=== PATIENT | female | born 1930 | race Caucasian/White ===

== ENCOUNTER 2018-05-23 14:09 | Inpatient (IN) | payer MEDICARE ==
[2018-05-23 15:17] LABS: #Basophils 0.1 thou/uL (0.0-0.2); #Eosinphils 0.1 thou/uL (0.0-0.7); #Lymphocytes 1.8 thou/uL (1.20-3.40); #Monocytes 1.6 thou/uL (0.11-0.59); #Neutrophils 11.9 thou/uL (1.40-6.50); %Basophils 0.4 % (0.0-1.0); %Eosinophils 0.4 % (0.0-10.0); %Lymphocytes 11.6 % (21.0-51.0); %Monocytes 10.4 % (0.0-10.0); %Neutrophils 77.1 % (42.0-75.0); Hemoglobin 7.2 g/dL (12.0-16.0); Mean Corpuscular Hemoglobin 28.4 pg (27.0-31.0); Mean Platelet Volume 8.1 fL (7.4-10.4); Platelet Count 204 thou/uL (130-400); Red Blood Cell (RBC) Count 2.54 mill/uL (4.20-5.40); White Blood Cell (WBC) Count 15.5 thou/uL (4.8-10.8)
[2018-05-23] MEDS ORDERED: Pantoprazole 80 MG, Admixture Fee 1 EACH in Sodium Chloride 0.9% 100 ML IVP SCH (15:45)
[2018-05-23] MEDS ORDERED: Bisacodyl 5 MG TAB PO PRN (17:07)
[2018-05-23] MEDS ORDERED: Ondansetron ODT 4 MG TAB SL PRN (17:19)
[2018-05-23] MEDS ORDERED: Ondansetron HCl/PF 4 MG/2 ML Vial IVP PRN (17:19)
[2018-05-23] MEDS ORDERED: Sodium Chloride 0.9% 1,000 ML IV SCH (17:30)
--- NOTE | 2018-05-23 17:56 | HP ---
PRIMARY CARE PHYSICIAN: Shun Lamas MD CHIEF COMPLAINT: Melena. HISTORY OF PRESENT ILLNESS: Ms. Johnson is a pleasant 87-year-old lady, who was seen at [facility] on 05/23/2018 following transfer from [facility]. She lives alone. She reports that about 3 days ago, she developed mild abdominal discomfort. She de scribes it as a dull aching sensation over her mid abdomen. It is nonradiating. No known aggravatin g or relieving factors. She denies taking any pain medications, although Aleve is listed as one of h er home medications. She also reports nausea over the last 3 days. She reports vomiting once. She denies any coffee-grou nd emesis. She reports that over the last 3 days, she has had multiple melanotic stools. She denies any chest p ain. She denies any lightheadedness. She denies any fevers or chills. She reports generalized weak ness. She denies any chest pain. REVIEW OF SYSTEMS: All other systems reviewed and found to be negative. PAST MEDICAL HISTORY: Hypertension, gastroesophageal reflux disease, dyslipidemia, hypothyroidism, d econditioning, insomnia, peripheral vascular insufficiency, constipation, generalized weakness. PAST SURGICAL HISTORY: Suprapubic urethropexy and upper GI scope with esophageal dilatation. She is unable to tell me who did that procedure. PSYCHIATRIC HISTORY: Depression. SOCIAL HISTORY: The patient denies tobacco use, alcohol use, or recreational drug use. FAMILY HISTORY: No family history of coronary artery disease. CODE STATUS: I discussed her code status. She is DNR. ALLERGIES: ACETAMINOPHEN, AMLODIPINE, BENAZEPRIL, CELEXA, CITALOPRAM, CODEINE, FLUOXETINE, MIRALAX, NORVASC, OMEPRAZOLE, PHENOBARBITAL, POLYETHYLENE GLYCOL 3350, PRILOSEC, PROZAC, AND TYLENOL. CURRENT MEDICATIONS: Colace 50 mg daily, levothyroxine 50 mcg daily, Aleve 220 mg as needed, hydrala zine 50 mg 4 times a day, metoprolol succinate 25 mg daily. PHYSICAL EXAMINATION: GENERAL: Ms. Johnson is awake and alert, not in acute distress. VITAL SIGNS: Blood pressure is 149/79, pulse 93, respiratory rate 17, and oxygen saturation 99% on 2 liters of oxygen. She is afebrile. EYES: No scleral icterus. She has conjunctival pallor. ENT: Moist mucosal membranes. No oropharyngeal erythema or exudates. NECK: Supple, nontender. Trachea is midline. RESPIRATORY: Accessory muscles of breathing are not active. Chest wall movements are symmetric bila terally. LUNGS: Clear to auscultation without wheeze, rhonchi, or crepitations. CARDIOVASCULAR: S1 and S2 are heard, regular. Peripheral pulses palpable. No carotid bruit, no per icardial rub. ABDOMEN: Soft, mild tenderness around the umbilicus, but no guarding or rigidity. Bowel sounds hear d. No hepatomegaly, no splenomegaly. NEUROLOGIC: Cranial nerves II-XII intact. SKIN: No rashes or subcutaneous nodules. LYMPHATIC: No cervical lymphadenopathy. PSYCHIATRIC: Normal mood, normal affect. The patient is oriented to person, place, and time. LABORATORY DATA: Ms. Johnson's labs and investigations were reviewed. She has normocytic anemia with hemoglobin 7.2. Her hemoglobin was 12.8 in 08/2017. She has leukocytosis with 15,500 white cells, of which 77% are neutrophils. Platelet count is normal. She has normal sodium, normal potassium, el evated blood urea nitrogen of 55, creatinine mildly elevated at 1.13, last known creatinine 0.93 on 11/10/2016, unremarkable liver profile, INR 1.2, and urinalysis that is unremarkable. ASSESSMENT AND PLAN: Ms. Johnson is a pleasant 87-year-old lady, who was seen at [facility] on 05/23/2018. Her problem list includes: 1. Anemia of acute blood loss. Ms. Johnson is presenting with anemia of acute blood loss, likely sec ondary to upper gastrointestinal bleed. She will be admitted to the hospital. She will be treated w [facility] PPI drip. Gastroenterology Service is being consulted for opinion and help with management. She is also receiving 1 unit of packed RBCs as ordered by emergency room physician. 2. Hypothyroidism: Continue Synthroid once the patient is able to take oral medications. 3. Hypertension: Monitor vital signs. Titrate antihypertensives as needed. We will also start the patient on IV hydralazine p.r.n. Many thanks for allowing me to participate in your patient's care. Please feel free to contact me wi th any questions or concerns. LEVEL OF RISK: Moderate. LEVEL OF COMPLEXITY: Moderate.
[2018-05-23] MEDS: Sodium Chloride 0.9% 1,000 ML IV SCH (22:20)
[2018-05-23] MEDS: Pantoprazole 80 MG in Sodium Chloride 0.9% 100 ML IVP SCH (23:08)
[2018-05-24 01:45] LABS: #Eosinphils 0.1 thou/uL (0.0-0.7); #Lymphocytes 1.6 thou/uL (1.20-3.40); #Monocytes 1.4 thou/uL (0.11-0.59); #Neutrophils 7.4 thou/uL (1.40-6.50); %Basophils 0.4 % (0.0-1.0); %Eosinophils 0.5 % (0.0-10.0); %Lymphocytes 15.1 % (21.0-51.0); %Monocytes 13.2 % (0.0-10.0); %Neutrophils 70.7 % (42.0-75.0); Hemoglobin 7.2 g/dL (12.0-16.0); Mean Corpuscular HGB CONC 34.1 g/dL (32.0-36.0); Mean Corpuscular Hemoglobin 30.1 pg (27.0-31.0); Mean Corpuscular Volume 88.3 fL (78.0-98.0); Mean Platelet Volume 7.5 fL (7.4-10.4); Platelet Count 194 thou/uL (130-400); RBC Distribution Width 13.2 % (11.5-14.5); Red Blood Cell (RBC) Count 2.38 mill/uL (4.20-5.40); White Blood Cell (WBC) Count 10.4 thou/uL (4.8-10.8)
[2018-05-24 02:15] LABS: Anion Gap 13 mmol/L (10-20); BUN (Urea Nitrogen) 48 mg/dL (9.8-20.1); Calc. Creatinine Clearance 32 mL/min (70-130); Calcium 8.1 mg/dL (7.8-10.44); Carbon Dioxide 18 mmol/L (23-31); Chloride 114 mmol/L (98-107); Estimated GFR-MDRD 62; Glucose 104 mg/dL (83-110); Potassium 3.9 mmol/L (3.5-5.1); Sodium 141 mmol/L (136-145)
[2018-05-24] MEDS ORDERED: GoLYTELY 4,000 ml Bottle PO SCH (05:00)
--- NOTE | 2018-05-24 11:22 | CON ---
DATE OF CONSULTATION: 05/23/2018 REFERRING PHYSICIAN: Dr. Fernando Mcguire, [facility]. REASON FOR CONSULTATION: GI bleeding, anemia due to blood loss. HISTORY OF PRESENT ILLNESS: Ms. Soni Johnson is a very pleasant 87-year-old fragile looking Cauca krystal female who was seen at our office, she was in the floor in the evening because of history of GI bleeding and anemia. The patient does see Dr. Lamas on a regular basis. The patient and patient's daughter tells me that she is having bright-red blood per stool, not actually dark tarry stool. In f act, the floor nurse tells me she had a stool in the floor after she arrived here and stool is actual ly bright red blood. She also had a stool out of the room and the stool is actually bright red in th e diaper, some melena. The patient noticed her GI bleeding approximately 3 days ago. The bleeding w as persistent. She has abdominal pain which is across the lower abdomen. She has nausea with one ep isode of vomiting. She vomited a couple of days ago and vomiting did not have any blood or coffee-gr ound material. The patient has no previous episodes of ulcer disease. The patient had no similar sy mptoms in the past. The patient was seen by Dr. Lamas this morning in the office and was sent to [facility]. She was found to be anemic and was transferred here. Her CBC showed anemia with a hemoglobin of 7.7. Her previous CBC report is unavailable. The patient appears very comfortable. She has no nausea or vomiting today. She does complain of pain across the lower abdomen. She has no fever, no chills. No similar episodes in the past. She has had an EGD and dilation for stricturing in the past. She is unable to tell me where it was done. She also had a colonoscopy more than 10 y ears ago and again she is on . Her blood pressure is very stable and BP when I saw her in the f caterina was 158/76. She is not tachycardic either. has been ordered in the ER, but not determina te so far. She has no relevant history. ALLERGIES: Multiple include ACETAMINOPHEN, AMLODIPINE, BENAZEPRIL, CELEXA, CITALOPRAM, CODEINE. All ergic to FLUOXETINE, NORVASC, OMEPRAZOLE, PHENOBARBITAL, POLYETHYLENE GLYCOL, PRILOSEC, PROZAC, AND T YLENOL. She is unable to tell me what happened when she took MIRALAX OR POLYETHYLENE GLYCOL. MEDICATIONS: Include Colace, levothyroxine, Aleve, hydralazine, metoprolol succinate. MEDICAL ILLNESSES: 1. Hypertension. 2. Chronic acid reflux. 3. Hyperlipidemia. 4. Hypothyroidism. 5. Deconditioning. 6. Insomnia. 7. Peripheral vascular disease. 8. Constipation. 9. Generalized weakness. SURGERIES: 1. Suprapubic urethropexy. 2. Esophageal dilation in the past. PSYCHIATRIC HISTORY: History of depression. SOCIAL HISTORY: The patient does not smoke or drink alcohol. FAMILY HISTORY: No family history of coronary artery disease, cancer, or CVA. REVIEW OF SYSTEMS: Constitutional: History of fatigue, tiredness, and generalized weakness. She suh s no history of chronic headache, dizziness. Respiratory system: No history of chronic cough, hemop tysis, or dyspnea. Cardiovascular system: No chest pain, no palpitation, no dyspnea, orthopnea or P ND. Gastrointestinal: As in history of present illness. Genitourinary: No dysuria or hematuria. Musculoskeletal: History of some back pain, arthralgias. PHYSICAL EXAMINATION: GENERAL: Revealed a very fragile looking, elderly female, appears very comfortable. She i s awake, alert and communicative. She is in no distress. VITAL SIGNS: Pulse is around 88, blood pressure 158/76. HEENT: Conjunctivae clear. NECK: Supple. No adenitis or thyromegaly noted. CARDIOVASCULAR SYSTEM: First and second heart sounds normal. LUNGS: Clear to auscultation. ABDOMEN: Abdomen is soft. Abdomen is nondistended. Abdomen is tender actually over the right lower quadrant, right lumbar area and also suprapubic area. There is some fullness. There is no rebound or guarding. No organomegaly or masses. Bowel sounds normal. Rectal exam done showed stool in the rectal vault and she has more of bright red blood on the exam finger. She also had the same thing on the diaper. Symptoms are grossly within normal limits. LABORATORY AND X-RAY FINDINGS: CBC: WBC , 77% neutrophils, hemoglobin 7.2. Electrolytes are n ormal. Her BUN elevated at 55 and most suggestive of upper GI bleeding but her stool is actually jorge luis ght red at the present time. Liver function tests are normal. CLINICAL IMPRESSION: 1. This is an 87-year-old female with GI bleeding and the history is somewhat confusing. but she and her daughter tells me that she is passing blood per rectum. She is also tender ove r the lower abdomen. Her elevated BUN is suggestive of upper gastrointestinal bleeding. I do not suh ve her baseline BUN from before. As per the admitting history and physical by Dr. Mcguire, apparently her creatinine was normal at 0.93 in 08/2017. 2. Hypothyroidism. 3. Anemia due to blood loss. 4. Hypertension. 5. Hyperlipidemia. 6. Chronic acid reflux. RECOMMENDATIONS: 1. Clear liquid diet. 2. Transfuse 1 unit of packed RBCs tonight and serial H&H. If blood count fails to come above 9, we would recommend another unit of packed RBCs. I did talk to the patient and patient's family about E GD and colonoscopy and they agree. Plan for surgery tomorrow after bowel prep heat transfer technician tomorrow .
[2018-05-24] MEDS: Sodium Chloride 0.9% 1,000 ML IV SCH ×2 (12:11→23:04)
[2018-05-24] MEDS ORDERED: PHENYLEPHRINE-NS 100 MCG/ML 10 ML SYRINGE ONE ×2 (13:37→19:03)
[2018-05-24] MEDS ORDERED: PROPOFOL 200 MG/20 ML VIAL ONE (13:37)
[2018-05-24] MEDS ORDERED: Lidocaine 1% PF 5 ML VIAL ONE (13:37)
[2018-05-24] MEDS ORDERED: Glycopyrrolate 0.2 MG/ML 5 ML SYRINGE ONE (13:37)
[2018-05-24] MEDS: Diltiazem 125 MG in Sodium Chloride 0.9% 100 ML IVPB SCH (14:20)
--- NOTE | 2018-05-24 16:40 | PDOC.PN ---
- Subjective Encounter Start Date: 05/24/18 Encounter Start Time: 14:10 Subjective: f/u for GI bleed and acute blood loss anemia s/p 1u PRBC's. Hgb -: in 7 range previously 12 in 2017. Currently prepping for endoscopy -: with Ivan. Nsg reports A-fib RVR this pm. - Objective Resuscitation Status: Resuscitation Status DNR:Do Not Resuscitate MAR Reviewed: Yes Vital Signs & Weight: Vital Signs (12 hours) Pulse 05/24/18 14:15 95 Weight Weight 100 lb 9.6 oz I&O: 05/23/18 05/24/18 05/25/18 06:59 06:59 06:59 Intake Total 1190 Output Total 200 Balance 990 Result Diagrams: 05/24/18 01:31 05/24/18 01:31 Additional Labs: Microbiology 05/23/18 12:08 Stool - Pending Stool Occult Blood (MENDY) - Final Laboratory Tests 09/09/17 05/23/18 05/23/18 07:36 12:20 15:08 WBC 15.5 H Hgb 12.8 7.7 L 7.2 L EKG Reviewed by me: Yes (Tele - A-fib in 150's now in low 100's on Cardizem gtt) Phys Exam - Physical Examination pale, awake, nods to questions HEENT: PERRLA, sclera anicteric, oral pharynx no lesions Neck: no nodes, no JVD, supple, full ROM Respiratory: no wheezing, no rales, no rhonchi, clear to auscultation bilateral tachycardic S1, S2 Cardiovascular: no significant murmur, no rub, irregular Gastrointestinal: soft, non-tender, no distention, positive bowel sounds Musculoskeletal: no edema, pulses present Neurological: normal sensation, moves all 4 limbs Psychiatric: A&O x 3 Deviation from normal: generally pale with pale nail beds Skin: normal turgor Dx/Plan (1) Acute GI bleeding Code(s): K92.2 - GASTROINTESTINAL HEMORRHAGE, UNSPECIFIED Status: Acute Comment: Likely upper source, serial H/H, Endoscopy planned today, IV PPI (2) Acute blood loss anemia Code(s): D62 - ACUTE POSTHEMORRHAGIC ANEMIA Status: Acute Comment: s/p 1u PRBC's, serial H/H, repeat CBC in am, see #1 above (3) Atrial fibrillation with RVR Code(s): I48.91 - UNSPECIFIED ATRIAL FIBRILLATION Status: Acute Comment: Apparent new-onset, Cardizem 10mg IV bolus then 5mg/h, check 2D echo in am, check TSH/FT4, no anticoagulation due to active GI bleeding (4) HTN (hypertension) Code(s): I10 - ESSENTIAL (PRIMARY) HYPERTENSION Status: Chronic Qualifiers: Hypertension type: essential hypertension Qualified Code(s): I10 - Essential (primary) hypertension Comment: Resume home BP regimen, serial monitoring (5) Physical deconditioning Code(s): R53.81 - OTHER MALAISE Status: Chronic Comment: PT evaluation for functional assessment (6) Hypothyroidism Code(s): E03.9 - HYPOTHYROIDISM, UNSPECIFIED Status: Chronic Comment: Continue Levothyroxine, check TSH/FT4 level in am - Plan plan discussed w/ family, PT/OT, social work supervisor, out of bed/ambulate, DVT proph w/SCDs Stable overall -: Continue Cardizem gtt for rate-control strategy -: No anticoagulation due to active GI bleeding -: Continue IV PPI -: 2D echo in am * Endoscopy planned for today * AM lab: BMP, CBC, TSH/FT4
[2018-05-24] MEDS ORDERED: Ketamine 50 MG/ML VIAL ONE (19:03)
[2018-05-24] MEDS ORDERED: Fentanyl 100 MCG/2 ML VIAL ONE (19:03)
[2018-05-24] MEDS ORDERED: Ondansetron HCl/PF 4 MG/2 ML Vial IVP PRN (20:36)
[2018-05-24] MEDS ORDERED: Promethazine HCl 25 MG/ML VIAL IM PRN (20:36)
[2018-05-24] MEDS ORDERED: Promethazine HCl 25 MG/ML VIAL SLOW IVP PRN (20:36)
[2018-05-24 21:19] LABS: Hemoglobin 7.9 g/dL (12.0-16.0)
[2018-05-25] MEDS: Pantoprazole 80 MG in Sodium Chloride 0.9% 100 ML IVP SCH ×2 (03:08→16:07)
--- NOTE | 2018-05-25 03:23 | OP ---
DATE OF PROCEDURE: 05/24/2018 OPERATIVE PROCEDURE: Esophagogastroduodenoscopy with biopsy. PREOPERATIVE DIAGNOSIS: An 87-year-old female with gastrointestinal bleeding and anemia. The patient undergoing esophagogastroduodenoscopy. POSTOPERATIVE DIAGNOSES: 1. Normal esophageal mucosa. 2. Small hiatus hernia. 3. Gastric ulcer x3 over the gastric antrum and one over the pyloric channel. The ulcer base is ho an and does not have any stigmata of recent bleeding. 4. Normal duodenum. PROCEDURE NOTE: The patient was placed on her left lateral position and was given sedation by Anesth esia Department. A Pentax video gastroscope under direct vision was passed down the oropharynx, past the GE junction, into the stomach and subsequently into the descending duodenum. The esophageal muc trang appeared normal. The GE junction, the mucosa appeared normal. Retroflexion showed a small hiatu s hernia. Over the gastric body, no pathology seen. The gastric antrum showed 3 ulcerations and tessy ears with clear base. There is ulcer over the pyloric channel. No active bleeding seen. The duoden al bulb, descending duodenum, no pathology seen. Biopsies obtained of the gastric antrum and gastric body. The stomach was decompressed and the scope removed.
[2018-05-25 06:19] LABS: Hemoglobin 7.7 g/dL (12.0-16.0)
[2018-05-25 06:29] LABS: Band 61 % (5-11); Hemoglobin 7.6 g/dL (12.0-16.0); Lymphocytes 16 % (21-51); MDiff Complete? YES; Mean Corpuscular HGB CONC 34.5 g/dL (32.0-36.0); Mean Corpuscular Hemoglobin 31.7 pg (27.0-31.0); Mean Corpuscular Volume 92.1 fL (78.0-98.0); Mean Platelet Volume 7.5 fL (7.4-10.4); Metamyelocyte 1 % (0-0); Monocytes 6 % (0-10); Neutrophil 16 % (42-75); PLT Morphology Comment Appears Adequate; Platelet Count 238 thou/uL (130-400); RBC Distribution Width 14.3 % (11.5-14.5); Red Blood Cell (RBC) Count 2.39 mill/uL (4.20-5.40); Reflex for Review?? YES; White Blood Cell (WBC) Count 10.6 thou/uL (4.8-10.8)
[2018-05-25 06:43] LABS: Anion Gap 14 mmol/L (10-20); BUN (Urea Nitrogen) 28 mg/dL (9.8-20.1); Calc. Creatinine Clearance 37 mL/min (70-130); Calcium 7.9 mg/dL (7.8-10.44); Carbon Dioxide 16 mmol/L (23-31); Chloride 116 mmol/L (98-107); Estimated GFR-MDRD 67; Glucose 112 mg/dL (83-110); Potassium 3.5 mmol/L (3.5-5.1); Sodium 142 mmol/L (136-145)
[2018-05-25 07:01] LABS: Free T4 (Free Thyroxine) 0.94 ng/dL (0.70-1.48); Thyroid Stimulating Hormone 0.9106 uIU/mL (0.35-4.94)
[2018-05-25] MEDS: Diltiazem 125 MG in Sodium Chloride 0.9% 100 ML IVPB SCH (11:12)
[2018-05-25] MEDS: Sodium Chloride 0.9% 1,000 ML IV SCH (13:30)
[2018-05-25] MEDS ORDERED: Sodium Chloride 0.9% 1,000 ML IV SCH (16:33)
--- NOTE | 2018-05-25 16:36 | PDOC.PN ---
- Subjective Encounter Start Date: 05/25/18 Encounter Start Time: 16:10 Subjective: f/u for GI bleeding and acute blood loss anemia due to gastric ulcers. -: PPI and s/p 1u PRBC's. Still feels weak but no fever, SOB. A-fib noted -: with Cardizem gtt. - Objective Resuscitation Status: Resuscitation Status DNR:Do Not Resuscitate MAR Reviewed: Yes Vital Signs & Weight: Vital Signs (12 hours) Temp Pulse Pulse Pulse Pulse Resp BP 05/25/18 09:38 86 108 H 83 137/65 05/25/18 08:00 97.6 F 88 16 05/25/18 07:47 97.6 F 88 18 BP BP BP Pulse Ox 05/25/18 09:38 136/72 144/73 H 05/25/18 08:00 93 L 05/25/18 07:47 121/59 L 94 L Weight Admit Weight 99 lb 8 oz Weight 104 lb 11.2 oz I&O: 05/24/18 05/25/18 05/26/18 06:59 06:59 06:59 Intake Total 1190 810 Output Total 200 Balance 990 810 Result Diagrams: 05/25/18 05:49 05/25/18 05:48 Additional Labs: Microbiology 05/23/18 12:08 Stool - Pending Stool Occult Blood (MENDY) - Final Laboratory Tests 09/09/17 05/23/18 05/23/18 07:36 12:20 15:08 WBC 15.5 H Hgb 12.8 7.7 L 7.2 L Free T4 TSH 3rd Generation 05/24/18 05/25/18 05/25/18 21:11 05:48 05:49 WBC Hgb 7.9 L 7.7 L Free T4 0.94 TSH 3rd Generation 0.9106 Radiology Reviewed by me: Yes (EGD - 3 gastric ulcers over pyloric channel) EKG Reviewed by me: Yes (Tele - A-fib in 110's) Phys Exam - Physical Examination Constitutional: NAD HEENT: PERRLA, sclera anicteric, oral pharynx no lesions Neck: no nodes, no JVD, supple, full ROM few scattered rhonchi Respiratory: no wheezing, no rales, clear to auscultation bilateral tachycardic S1, S2 Cardiovascular: no significant murmur, no rub, gallop, irregular Gastrointestinal: soft, non-tender, no distention, positive bowel sounds Musculoskeletal: no edema, pulses present Neurological: normal sensation, moves all 4 limbs Psychiatric: normal affect, A&O x 3 Deviation from normal: pale appearing Skin: normal turgor, cap refill <2 seconds Dx/Plan (1) Acute GI bleeding Code(s): K92.2 - GASTROINTESTINAL HEMORRHAGE, UNSPECIFIED Status: Acute Comment: Secondary to gastric ulcers, PPI, avoid anticoagulation, appreciate GI assistance (2) Acute blood loss anemia Code(s): D62 - ACUTE POSTHEMORRHAGIC ANEMIA Status: Acute Comment: s/p 1u PRBC's, serial H/H, transfuse 2nd unit PRBC's today, CBC in am (3) Atrial fibrillation with RVR Code(s): I48.91 - UNSPECIFIED ATRIAL FIBRILLATION Status: Acute Comment: Apparent new-onset, Cardizem 10mg IV bolus then 5mg/h, check 2D echo in am, no anticoagulation due to active GI bleeding, resume Metoprolol 25mg daily, consult Cardiology service, Echo pending (4) HTN (hypertension) Code(s): I10 - ESSENTIAL (PRIMARY) HYPERTENSION Status: Chronic Qualifiers: Hypertension type: essential hypertension Qualified Code(s): I10 - Essential (primary) hypertension Comment: Resume home BP regimen, serial monitoring (5) Physical deconditioning Code(s): R53.81 - OTHER MALAISE Status: Chronic Comment: PT evaluation for functional assessment (6) Hypothyroidism Code(s): E03.9 - HYPOTHYROIDISM, UNSPECIFIED Status: Chronic Comment: Continue Levothyroxine - Plan plan discussed w/ family, PT/OT, social professionals, DVT proph w/SCDs Stable currently -: Transfuse 2nd unit PRBC's today -: No anticoagulation -: Continue Protonix IV -: Continue Cardizem gtt * Consult Cardiology service * AM lab: BMP, CBC
[2018-05-25] MEDS ORDERED: Digoxin 0.25 MG TAB PO SCH (17:00)
[2018-05-25] MEDS ORDERED: Acetaminophen 500 MG TAB PO PRN (19:19)
--- NOTE | 2018-05-26 02:32 | OP ---
DATE OF PROCEDURE: 05/24/2018 OPERATIVE PROCEDURE: Colonoscopy. PREOPERATIVE DIAGNOSIS: Gastrointestinal bleeding, negative esophagogastroduodenoscopy. POSTOPERATIVE DIAGNOSES: The exam was very difficult because of large amount of old blood and some c lots. There is no fecal material seen, but the exam was very difficult because of the large amount o f blood and clot. No fresh blood seen at the time of endoscopy. She does have scattered diverticula r disease and possibly what appears to be ulceration of the right colon. The blood was seen starting from the rectum all the way to the right colon. Based on the endoscopic findings, possible the gwendolyn ent has most likely bleeding from diverticular disease versus bleeding from possible small bowel path ology. PROCEDURE IN DETAIL: The patient was placed in the left lateral position. A rectal exam was done be fore the scope was advanced into the rectum. The patient has had external hemorrhoids. No other les ions felt. A Pentax video colonoscope was introduced into the rectum and advanced all the way into t he right colon. The patient had a very tortuous and redundant colon. On top of fact that she has la rge amount of dark blood all through the colon. There is no fresh bleeding seen. The patient does h ave scattered diverticular disease of the left colon and possibly the proximal colon. Because of the large amount of dark blood, it was very difficult to actually visualize. There appears to be also s ome mucosal inflammation, some ulceration of right colon. Retroflexion of the scope in the rectum sh owed hemorrhoids. RECOMMENDATIONS: As follows: 1. Discontinue n.p.o. 2. Serial H&H. 3. Clear liquid diet. 4. If the bleeding recurs and if she continues to have bleeding please obtain a scan.
--- NOTE | 2018-05-26 02:51 | PRG ---
DATE OF SERVICE: 05/25/2018 SUBJECTIVE: Ms. Soni Johnson is an 87-year-old female, hospitalized with gastrointestin al bleeding. The patient has been given 2 units of packed RBCs since admission. The patient underwe nt EGD and was found to have gastric ulcer, nonbleeding and also a pyloric channel ulcer. The colono scopy showed dark blood throughout the colon starting from the rectum all the way to cecum. She also has scattered diverticulosis. There is some in the right colon. Although water was irrigated and washed out, the entire colon could not be completely cleaned out. There was no fresh blood seen during the examination. It was felt that patient most likely has bleeding from either diverticular disease or possible small bowel pathology. The patient has done well overnight. She has had no stoo l. Her blood count remained stable around 7.6 it has not dropped down anymore. The patient has had no stool today. She has no abdominal pain, no nausea or vomiting. LABORATORY DATA: From today, WBC 10,600, hemoglobin 7.6, hematocrit 22, MCV 92.1, platelet count is 238,000. Chem-7: Potassium 3.5, chloride 116, bicarbonate 16, BUN 28 , creatinine 0.81, glucos e 112. CLINICAL IMPRESSION: 1. Gastrointestinal bleeding, most likely diverticular bleeding as seen no fresh blood in the colon, but large amount of dark blood seen in the colonoscopy. 2. Gastric ulcer, nonbleeding. 3. Anemia due to blood loss. RECOMMENDATIONS: 1. Heart healthy diet today. 2. Repeat CBC tomorrow. Blood count remained stable and she has recurrence of bleeding, hopefully p atient can be discharged home in the next 24 hours.
[2018-05-26 06:04] LABS: Band 30 % (5-11); Eosinophils 3 % (0-10); Hemoglobin 10.1 g/dL (12.0-16.0); Lymphocytes 23 % (21-51); MDiff Complete? YES; Mean Corpuscular HGB CONC 34.1 g/dL (32.0-36.0); Mean Corpuscular Hemoglobin 31.2 pg (27.0-31.0); Mean Corpuscular Volume 91.6 fL (78.0-98.0); Mean Platelet Volume 7.6 fL (7.4-10.4); Metamyelocyte 1 % (0-0); Monocytes 9 % (0-10); Myelocyte 1 % (0-0); Neutrophil 29 % (42-75); Platelet Count 265 thou/uL (130-400); RBC Distribution Width 14.4 % (11.5-14.5); Reactive Lymphocytes 4 % (0-10); Red Blood Cell (RBC) Count 3.22 mill/uL (4.20-5.40); White Blood Cell (WBC) Count 12.1 thou/uL (4.8-10.8)
[2018-05-26] MEDS: hydrALAZINE 20 MG/ML VIAL SLOW IVP PRN ×2 (06:08→20:31)
[2018-05-26 06:16] LABS: Anion Gap 12 mmol/L (10-20); BUN (Urea Nitrogen) 22 mg/dL (9.8-20.1); Calc. Creatinine Clearance 40 mL/min (70-130); Calcium 8.4 mg/dL (7.8-10.44); Carbon Dioxide 18 mmol/L (23-31); Chloride 116 mmol/L (98-107); Estimated GFR-MDRD 73; Glucose 81 mg/dL (83-110); Potassium 3.3 mmol/L (3.5-5.1); Sodium 143 mmol/L (136-145)
[2018-05-26] MEDS ORDERED: Furosemide 40 MG/4 ML VIAL ONE (06:28)
[2018-05-26] MEDS ORDERED: Nitroglycerin 2% Ointment 1 INCH/1 GM Packet ONE (06:29)
[2018-05-26] MEDS ORDERED: Furosemide 40 MG/4 ML VIAL SLOW IVP SCH ×2 (06:45→07:00)
[2018-05-26] MEDS ORDERED: Nitroglycerin 2% Ointment 1 INCH/1 GM Packet TOP SCH ×2 (07:00)
--- NOTE | 2018-05-26 08:04 | RAD ---
UPRIGHT PORTABLE CHEST 1 VIEW: HISTORY: An 87-year-old female with a history of shortness of breath and crackles. FINDINGS: Monitor leads overlie the chest. Increased linear and interstitial markings bilaterally, which may w ell represent some chronic interstitial lung disease versus some symmetric acute interstitial edema, mild. No confluent pneumonia. Slight blunting of the costophrenic angles. IMPRESSION: Increased interstitial parenchymal changes bilaterally, particularly in the perihilar regions. Evide nce for some diffuse acute interstitial disease such as atypical pneumonitis or edema versus underlyi ng chronic change. Short-term followup to include upright PA and lateral chest. Atherosclerosis of the aorta with ectasia. POS: OFF
[2018-05-26] MEDS: Pantoprazole 80 MG in Sodium Chloride 0.9% 100 ML IVP SCH (08:36)
[2018-05-26] MEDS ORDERED: Digoxin 0.125 MG TAB PO SCH (09:00)
--- NOTE | 2018-05-26 15:50 | PDOC.PN ---
- Subjective Encounter Start Date: 05/26/18 Encounter Start Time: 15:05 Subjective: f/u s/p GI bleed and 2u PRBC's. Also A-fib RVR on prior Cardizem -: gtt but converting to SR. Feels much better today. - Objective Resuscitation Status: Resuscitation Status DNR:Do Not Resuscitate MAR Reviewed: Yes Vital Signs & Weight: Vital Signs (12 hours) Temp Pulse Pulse Pulse Resp BP BP 05/26/18 11:28 97.9 F 86 15 05/26/18 11:24 80 78 191/86 H 05/26/18 08:35 89 05/26/18 08:09 97.5 F L 89 12 05/26/18 06:35 125 H 28 H 05/26/18 06:08 113 H 189/109 H 05/26/18 04:00 98.2 F 71 20 BP BP Pulse Ox 05/26/18 11:28 169/55 H 97 05/26/18 11:24 188/85 H 05/26/18 08:35 05/26/18 08:09 171/75 H 96 05/26/18 06:35 95 05/26/18 06:08 05/26/18 04:00 144/67 H 92 L Weight Admit Weight 99 lb 8 oz Weight 104 lb 11.2 oz I&O: 05/25/18 05/26/18 05/27/18 06:59 06:59 06:59 Intake Total 810 1515 Balance 810 1515 Result Diagrams: 05/26/18 05:26 05/26/18 05:26 Additional Labs: Microbiology 05/23/18 12:08 Stool - Pending Stool Occult Blood (MENDY) - Final Laboratory Tests 09/09/17 05/23/18 05/23/18 07:36 12:20 15:08 WBC 15.5 H Hgb 12.8 7.7 L 7.2 L Band Neuts % (Manual) Free T4 TSH 3rd Generation 05/24/18 05/25/18 05/25/18 21:11 05:48 05:49 WBC Hgb 7.9 L 7.7 L Band Neuts % (Manual) Free T4 0.94 TSH 3rd Generation 0.9106 05/25/18 05/26/18 05:49 05:26 WBC 10.6 Hgb 7.6 L Band Neuts % (Manual) 61 H 30 H Free T4 TSH 3rd Generation Radiology Reviewed by me: Yes (Echo - EF 60-65%, mod-severe LAE) EKG Reviewed by me: Yes (Tele - SR) Phys Exam - Physical Examination Constitutional: NAD HEENT: PERRLA, sclera anicteric, oral pharynx no lesions Neck: no nodes, no JVD, supple, full ROM few basilar crackles Respiratory: no wheezing, no rhonchi S1, S2 Cardiovascular: RRR, no significant murmur, no rub, gallop Gastrointestinal: soft, non-tender, no distention, positive bowel sounds Musculoskeletal: no edema, pulses present Neurological: normal sensation, moves all 4 limbs Psychiatric: normal affect, A&O x 3 Skin: no rash, normal turgor, cap refill <2 seconds Dx/Plan (1) Acute GI bleeding Code(s): K92.2 - GASTROINTESTINAL HEMORRHAGE, UNSPECIFIED Status: Acute Comment: Secondary to gastric ulcers, PPI, avoid anticoagulation, appreciate GI assistance (2) Acute blood loss anemia Code(s): D62 - ACUTE POSTHEMORRHAGIC ANEMIA Status: Acute Comment: s/p 2u PRBC's, serial H/H, stable currently (3) Atrial fibrillation with RVR Code(s): I48.91 - UNSPECIFIED ATRIAL FIBRILLATION Status: Acute Comment: Apparent new-onset, Cardizem 10mg IV bolus then 5mg/h, check 2D echo in am, no anticoagulation due to active GI bleeding, converted to SR, continue Metoprolol 50mg daily, Digoxin 0.125mg, appreciate Cardiology assistance (4) HTN (hypertension) Code(s): I10 - ESSENTIAL (PRIMARY) HYPERTENSION Status: Chronic Qualifiers: Hypertension type: essential hypertension Qualified Code(s): I10 - Essential (primary) hypertension Comment: Resume home BP regimen, serial monitoring (5) Physical deconditioning Code(s): R53.81 - OTHER MALAISE Status: Chronic Comment: PT evaluation for functional assessment (6) Hypothyroidism Code(s): E03.9 - HYPOTHYROIDISM, UNSPECIFIED Status: Chronic Comment: Continue Levothyroxine - Plan plan discussed w/ family, PT/OT, social media editor, out of bed/ambulate, DVT proph w/SCDs Stable currently -: Titrate rate-control agents -: No anticoagulation due to GI bleeding -: Convert Protonix 40mg po BID -: Saline lock IVF * AM lab: BMP, H/H * Likely home in am
--- NOTE | 2018-05-26 16:34 | CON ---
DATE OF CONSULTATION: 05/26/2018 CARDIOLOGY CONSULTATION REASON FOR CONSULTATION: Atrial fibrillation, rapid ventricular response. HISTORY OF PRESENT ILLNESS: Mrs. Johnson is a very pleasant 87-year-old white female who comes to the hospital for 3 days of abdominal pain and melena. She was found to have an acute blood loss anemia, underwent EGD and colonoscopy with Dr. Caban yesterday and was found to have 3 nonbleeding ulcer s in her stomach. Cardiology is being consulted as she went into atrial fibrillation and RVR. She w as started on diltiazem drip for rate control. Blood pressure could be hold well with this. On my e valuation, Mrs. Johnson just happened to go back into normal rhythm. This is actually a new diagnosis for her. She had never had any heart problems in the past. Never seen a dinkey brakeman before. PAST MEDICAL HISTORY: Includes, 1. Hypertension. 2. GERD. 3. Hyperlipidemia. 4. Hypothyroidism. 5. Deconditioning. 6. Insomnia. 7. Peripheral vascular disease. 8. Constipation. 9. Generalized weakness. PAST SURGICAL HISTORY: 1. Suprapubic urethropexy. 2. Upper gastrointestinal scoping and esophageal dilatations in the past. SOCIAL HISTORY: No alcohol, tobacco or drugs. FAMILY HISTORY: Noncontributory. HOME MEDICATIONS: Include, 1. Metoprolol succinate 25 mg a day. 2. Hydralazine 50 mg 4 times a day. 3. Docusate 50 mg a day. ALLERGIES: 1. IODINE. 2. AMLODIPINE. 3. BENAZEPRIL. 4. CITALOPRAM. 5. CODEINE. 6. FISH CONTAINING PRODUCTS. 7. PROZAC. 8. PRILOSEC. 9. PHENOBARBITAL. 10. MIRALAX. 11. SHELLFISH DERIVED gives her an anaphylaxis. REVIEW OF SYSTEMS: A 12-point review of systems was done and is all negative unless stated in the hi story of present illness. PHYSICAL EXAMINATION: VITAL SIGNS: Temperature 97.9, pulse 86, respiration rate 15, satting 97% on 2 liters, blood pressur e 169/55. GENERAL: Awake, alert, oriented x3, in no distress. HEENT: Normocephalic. NECK: Supple. LUNGS: Very soft crackles at bilateral bases, better with cough. CARDIOVASCULAR: S1, S2. No S3, S4. No murmurs, no rubs. ABDOMEN: Soft. Positive bowel sounds. EXTREMITIES: No edema. SKIN: Warm and dry. LABORATORY WORK: Reviewed. White count of 12, hemoglobin of 10.1, hematocrit of 29, platelet count of 265,000. Chemistries were unremarkable except for potassium of 3.3, anion gap of 12, BUN 22, crea tinine 0.7. Normal free T4 and TSH. IMAGING: EKG was reviewed. She was in AFib RVR before. Currently in sinus rhythm. Echocardiogram was reviewed. This was read yesterday by one of my partners, Dr. Valencia, had an EF of 60%-65%. Dilated left atrium, mild MR, [id number]-[id number] TR with elevated pulmonary pressures. ASSESSMENT: 1. New onset atrial fibrillation, paroxysmal. 2. Upper gastrointestinal bleed. 3. Acute blood loss anemia. 4. Hypertension. PLAN: 1. Continue metoprolol alone. She is currently not a good candidate for any type of stroke prophyla xis until her exact source of bleeding is found. It is assumed to be one of these 3 ulcers, however, they did not have any of the stigmata of recent bleeding. I would think she is not a good candidate for full anticoagulation given this GI bleeding as she would be high risk for bleeding and if possib le in the future, she will need to be on aspirin alone for stroke prophylaxis along with a proton pum p inhibitor to prevent any further ulcers from forming. 2. Otherwise, continue her current dose of metoprolol. We may be able up titrate as long as her hea rt rate allows. We will go up to 100 mg of Toprol XL daily. Otherwise, her blood pressure is high a t this time. Hopefully, up titrating her metoprolol will help. I doubt that it will get her down to the level that it needs to be. I would only treat her standing blood pressure. I would not treat h er sitting or her lying down blood pressure. Thank you letting us participate in the care of your patient. We will follow.
--- NOTE | 2018-05-27 03:25 | PRG ---
DATE OF SERVICE: 05/26/2018 SUBJECTIVE: This is an 87-year-old female hospitalized with hematochezia, anemia due to bl ood loss. EGD which revealed multiple gastric ulcers, nonbleeding. The colonoscopy showed scattered diverticular disease, but at the time of colonoscopy, no active bleeding seen. She had large amount of dark blood in the colon. The patient has done very well without any recurrence of bleeding. She yesterday and she states she actually feeling better. Blood count is up to 10.1. She denies any abdominal pain, no nausea. No rectal bleeding. She also has atrial fibrillation with fast ventr icular rate is controlled with Cardizem. Her pulse rate is down to around 76. PHYSICAL EXAMINATION: GENERAL: Appears comfortable. VITAL SIGNS: Stable. Pulse is around 76, blood pressure around 130/70. CARDIOVASCULAR SYSTEM AND LUNGS: Within normal limits. ABDOMEN: Soft to palpate. No organomegaly. No tenderness. No masses. RECOMMENDATION: Follow up H&H and PPI. please call me back.
[2018-05-27 06:02] LABS: Anion Gap 13 mmol/L (10-20); BUN (Urea Nitrogen) 13 mg/dL (9.8-20.1); Calc. Creatinine Clearance 44 mL/min (70-130); Carbon Dioxide 21 mmol/L (23-31); Chloride 106 mmol/L (98-107); Estimated GFR-MDRD 82; Glucose 79 mg/dL (83-110); Hemoglobin 9.6 g/dL (12.0-16.0); Platelet Count 262 thou/uL (130-400); Potassium 3.4 mmol/L (3.5-5.1); Sodium 137 mmol/L (136-145)
--- NOTE | 2018-05-27 09:05 | PRG ---
DATE OF SERVICE: 05/27/2018 SUBJECTIVE: The patient states she feels pretty good. She feels like she is breathing comfortably. She has had no further bleeding that she is aware of. The patient indicates to me that she lives al one at home. She stated that she might be interested in going to stay with her daughter for a while after discharge in order to try to get stronger. OBJECTIVE: VITAL SIGNS: Temperature is 97.7, pulse 88, respirations 17, O2 sat 96% on 2.5 liters nasal cannula, BP, most recent standing blood pressure was 133/72, most immediate recheck was 202/91. GENERAL: Age appropriate female. She is in no distress. She is awake and alert, but slightly slow to respond. She seems appropriate, but does not recall in much detail a number of issues. HEART: Heart has a significant 2/6 systolic murmur heard throughout the precordium. LUNGS: Have basilar crackles on the left and minimally on the right base. ABDOMEN: Soft, nontender, nondistended. EXTREMITIES: Warm without significant edema. LABORATORY: Hemoglobin 9.6, platelets 262. Sodium 137, potassium 3.4, chloride 106, CO2 is 21, BUN 13, creatinine 0.6, glucose 79, calcium 8.0. Path report from gastric biopsy shows H. pylori with chronic active gastritis. IMPRESSION AND PLAN: 1. Acute gastrointestinal bleed. The patient had gastric ulcers without evidence of active bleeding on endoscopy. 2. Gastric ulcers identified on the EGD. They had clean base without active bleeding. The patient is currently on PPI. 3. H. pylori. The patient's path report did reveal H. pylori. I asked nursing to make sure Dr. Mulu rivas is aware of this so that we can get her on his desired regimen. 4. Acute anemia secondary to acute gastrointestinal bleed. The patient's hemoglobin is 9.6 this mor iman slightly down from her posttransfusion number, but generally stable. We will continue to monito r. 5. Atrial fibrillation with rapid ventricular response, now converted to sinus rhythm. Cardiology f shon. Continue with the Toprol 100 mg daily. 6. Essential hypertension. The patient's blood pressure is somewhat sporadic and she does have some orthostasis. Trying to manage her heart rate and blood pressure in light of the orthostasis. Tryin g to manage only her standing blood pressures. We will wait and see what her next pressure is in a f ew minutes, if it remains high, may need to add something; however, concerned that her numbers are sp urious. 7. Evidence of congestive heart failure with some pulmonary edema. Yesterday's chest x-ray showed s ome pulmonary edema. She did receive a dose of Lasix. She continues to have some rales on exam. He r echocardiogram was performed with her being in atrial fibrillation with RVR her diastolic function could not be fully assessed. I suspect she may have some volume overload simply from transfusions an d fluid and possibly some diastolic dysfunction that cannot be confirmed at this point. We will chec k some room air sats today. She may need a bit more diuresis. 8. Hypothyroidism. Continue with levothyroxine. 9. Physical deconditioning. I have asked the patient about her plans and she indicates she would pl an to possibly go with the daughter. I believe the patient looked profoundly weak just trying to get her up to the side of the bed for her blood pressure this morning. We will discuss with case manage ment this morning to determine what alternative plans we might be able to arrange for the patient. I am going to keep the Mccormick catheter in for right now in order to ensure we do not need to further di urese her. Nursing has indicated that she tends to get up out of bed fairly quickly in spite of the bed alarms. We will check room air sats too, to see if we need to maintain the supplemental oxygen.
--- NOTE | 2018-05-27 13:07 | PQF ---
CLINICAL DOCUMENTATION IMPROVEMENT CLARIFICATION FORM: ICD-10 Updated PLEASE DO AN ADDENDUM TO THE PROGRESS NOTE WITH ANY DOCUMENTATION UPDATES OR ADDITIONS AND CARRY THROUGH TO DC SUMMARY. THANK YOU. DATE: 05/27/18 ATTN: DR. VAZQUEZ Please exercise your independent, professional judgment in responding to the clarification form. Clinical indicators are provided on the bottom of this form for your review Please check appropriate box(s): HEART FAILURE: A. TYPE: [ ] Systolic / HFrEF [ ] Diastolic / HFpEF [ ] Combined Systolic / Diastolic B. ACUITY [ ] Acute [ ] Acute on Chronic [ ] Chronic [ ] Other diagnosis [ x] Unable to determine Echo was performed when in afib with RVR and diastolic function could not be assessed. In addition, please specify: Present on Admission (POA): [ ] Yes [ ] No [ x] Unable to determine For continuity of documentation, please document condition throughout progress notes and discharge summary. Thank You. CLINICAL INDICATORS - SIGNS / SYMPTOMS / LABS PROGRESS NOTE 05/27: "EVIDENCE OF CONGESTIVE HEART FAILURE WITH SOME PULMONARY EDEMA. YESTERDAY'S CHEST X-RAY SHOWED SOME PULMONARY EDEMA. SHE DID RECEIVE A DOSE OF LASIX." NURSING NOTE 05/26: "PATIENT STARTED FEELING SHORTNESS OF BEATH, LUNG SOUNDS HAS FINE CRACKLES." CHEST XRAY 05/26: "INCREASED LINEAR AND INTERSTITIAL MARKINGS BILATERALLY, WHICH MAY WELL REPRESENT SOME CHRONIC INTERSTITIAL LUNG DISEASE VERSUS SOME SYMMETRIC ACUTE INTERSTITIAL EDEMA, MILD." RISKS: HYPERTENSION (PER NOTE 05/27) ATRIAL FIBRILLATION (PER NOTE 05/27) ADMINISTRATION OF BLOOD TRANSFUSION (05/24/05/25) TREATMENT: ECHOCARDIOGRAM (ORDERED 05/25) CHEST XRAY 05/26 SUPPLEMENTAL O2 APPLIED (NURSING NOTE 05/26) LASIX ADMINISTERED (NURSING NOTE 05/26) [employer] Publication Dist[employer] Winform Viewer (This form is maintained as a part of the permanent medical record) 2014 [employer]. All Rights Reserved WALLACE [email or web address] Office: [phone] [facility] FACILITYPhilippe
--- NOTE | 2018-05-27 15:29 | PDOC.CTH ---
Cardiology Progress Note - Subjective She is doing well. Became a little confused overnight. - Objective Vital Signs Temp Pulse Resp BP BP Pulse Ox 05/27/18 14:45 98.8 F 82 22 H 197/104 H 96 05/27/18 08:00 98 F 86 20 202/91 H 99 Admit Weight 99 lb 8 oz Weight 104 lb 11.2 oz 05/26/18 05/27/18 05/28/18 06:59 06:59 06:59 Intake Total 1515 1130 Output Total 3175 Balance 1515 -2045 - Physical Examination General/Neuro: NAD Neck: no JVD present Lungs: CTA, unlabored respirations Heart: RRR Abdomen: NT/ND Extremities: other: (no edema) - Telemetry Telemetry Rhythm: NSR - Labs Result Diagrams: 05/27/18 04:53 05/27/18 04:53 - Assessment/Plan 1. New onset Afib 2. Upper GIH bleed 3. Acute blood loss anemia 4. HTN PLAN: - Will restart hydralazine - Continue BB - Not a candidate for nay anticoagulation due to GI bleed. - Aspirin when ok with GI. - Replace K.
[2018-05-27] MEDS: hydrALAZINE 25 MG TAB PO SCH ×2 (16:51→22:35)
[2018-05-28] MEDS: hydrALAZINE 20 MG/ML VIAL SLOW IVP PRN ×2 (03:33→11:31)
[2018-05-28 05:43] LABS: Anion Gap 13 mmol/L (10-20); BUN (Urea Nitrogen) 15 mg/dL (9.8-20.1); Calc. Creatinine Clearance 42 mL/min (70-130); Calcium 8.5 mg/dL (7.8-10.44); Carbon Dioxide 24 mmol/L (23-31); Chloride 104 mmol/L (98-107); Estimated GFR-MDRD 79; Glucose 77 mg/dL (83-110); Potassium 3.5 mmol/L (3.5-5.1); Sodium 137 mmol/L (136-145)
[2018-05-28 06:17] LABS: Band 29 % (5-11); Eosinophils 3 % (0-10); Hemoglobin 10.9 g/dL (12.0-16.0); Lymphocytes 17 % (21-51); MDiff Complete? YES; Mean Corpuscular HGB CONC 33.4 g/dL (32.0-36.0); Mean Corpuscular Hemoglobin 30.9 pg (27.0-31.0); Mean Corpuscular Volume 92.5 fL (78.0-98.0); Mean Platelet Volume 7.4 fL (7.4-10.4); Metamyelocyte 1 % (0-0); Monocytes 6 % (0-10); Myelocyte 2 % (0-0); Neutrophil 40 % (42-75); PLT Morphology Comment Appears Adequate; Platelet Count 301 thou/uL (130-400); RBC Distribution Width 14.8 % (11.5-14.5); Reactive Lymphocytes 2 % (0-10); Red Blood Cell (RBC) Count 3.54 mill/uL (4.20-5.40); White Blood Cell (WBC) Count 14.1 thou/uL (4.8-10.8)
[2018-05-28] MEDS: hydrALAZINE 25 MG TAB PO SCH ×4 (08:11→20:22)
[2018-05-28] MEDS: Amiodarone 200 MG TAB PO SCH ×2 (09:17→20:22)
--- NOTE | 2018-05-28 11:15 | RAD ---
1 VIEW CHEST: Date: 05/28/18 COMPARISON: 05/26/18. HISTORY: Shortness of breath. Leukocytosis. Abnormal exam. FINDINGS: Pleural and parenchymal changes left lung base. Heart size upper normal. There is atherosclerosis of aorta. Patchy interstitial opacities, without consolidation or mass. No pneumothorax or osseous abnor malities. IMPRESSION: 1. Atherosclerosis. 2. Patchy interstitial and alveolar opacities throughout the lung parenchyma. Correlate for edema or infiltrate. 3. Pleural and parenchymal changes left lung base. Continued surveillance to ensure complete resolut ion is recommended. POS: LANE
[2018-05-28 11:39] LABS: Bilirubin Negative (Negative); Blood, Urine Negative (Negative); Clarity CLEAR (Clear); Glucose, Urine (Dipstick) Negative (Negative); Leukocyte Trace (Negative); Nitrite Negative (Negative); Protein, Urine (Dipstick) Negative (Neg-Trace); Specific Gravity, Urine 1.012 (1.002-1.036); pH, Urine 6.5 (5.0-9.0)
[2018-05-28 11:42] LABS: Bacteria/HPF None Seen HPF (None Seen); Hyaline Casts/LPF 0-3 HYALINE CAST LPF (0-3 Hyaline); RBC/HPF 0-3 HPF (0-3); Squamous Epithelial 0-3 HPF (0-3); WBC/HPF 0-3 HPF (0-3)
--- NOTE | 2018-05-28 12:27 | PRG ---
DATE OF SERVICE: 05/28/2018 SUBJECTIVE: The patient has felt some lightheadedness this morning. PHYSICAL EXAMINATION: VITAL SIGNS: Blood pressure has been somewhat elevated. She denies any other symptoms. T-max is 99 .3, pulse 85, respirations 16, although go up significantly with any activity. O2 sat 92% on room ai r after attempting to stand for blood pressure was 86% on room air. Standing BP was 211/88. GENERAL APPEARANCE: Age appropriate female. She does appear a bit worn out and mildly tachypneic af ter attempting to stand for blood pressure check. HEART: Faint but regular. No murmurs are heard. LUNGS: Slightly diminished, but no significant rales heard today. ABDOMEN: She does have some tenderness in the right upper quadrant. Otherwise, soft and nondistende d. EXTREMITIES: Warm and dry. LABORATORY DATA: White count 14.1, hemoglobin 10.9, platelets 301, 29% bands. Chemistry normal. Ch est x-ray repeated this morning. Single view portable appears to be generally clear. IMPRESSION AND PLAN: 1. Acute gastrointestinal bleed, appears to be stable. 2. Gastric ulcers identified on EGD with clean base. Continue with PPI. 3. Helicobacter pylori positivity. She has not been started on treatment for that as of yet. Twila alvarez on GI input, but may need to get that started, not addressed today. 4. Acute anemia secondary to gastrointestinal bleed, appears to be stable post-transfusion. 5. Atrial fibrillation converted to sinus rhythm. The patient remains on Toprol and no anticoagulat ion because of the gastrointestinal bleed. 6. Essential hypertension. The patient continues to have very elevated systolic pressures with norm al to mildly elevated diastolic pressures. Cardiology increased her oral hydralazine dose to 50 mg t .i.d. The record would indicate that she was on 50 mg q.i.d. at home. However, she is also on a hig her dose of Toprol than she was at home. Difficult to assess this patient's blood pressure. Attempt ing to get her to stand for blood pressures challenging because she tends to use both arms to support herself on her walker and with flexing of her musculature of her upper extremities. The pressures a re likely not entirely accurate. They would be elevated with that error. 7. No evidence of persistent pulmonary edema based on today's chest x-ray. 8. Hypothyroidism, stable. 9. Leukocytosis with bandemia. Chest x-ray does not appear to be a culprit. Patient does have a Fo geovanna catheter and checking a urinalysis today. We will discontinue the Mccormick catheter as soon as we g et the urine sample. Mccormick was maintained yesterday over concerns that we might need to further diur john her, but that does not appear to be the case. All of her IV lines look good, but she does have s ome right upper quadrant pain which will investigate as well. 10. Right upper quadrant pain. We will obtain on ultrasounds. 11. Significant physical deconditioning. The patient was somewhat exhausted just trying to get up o f the bed to her walker side of the bed in order to get a blood pressure check. 12. Hypoxia with an O2 sat of 86%. Again, chest x-ray looks fairly clear so far. We will give p.r. n. oxygen at this time.
[2018-05-28] MEDS ORDERED: hydrALAZINE 20 MG/ML VIAL SLOW IVP SCH (13:45)
--- NOTE | 2018-05-28 14:23 | ULT ---
ABDOMINAL ULTRASOUND: Date: 05/28/18 HISTORY: Leukocytosis. Right upper quadrant pain. COMPARISON: None. TECHNIQUE: Utilizing a multihertz transducer, sonographic imaging of the abdomen is performed in the longitudina l and transverse plane. FINDINGS: The head of the pancreas and proximal pancreatic body are grossly unremarkable. Suboptimal evaluation of the IVC and aorta. Hepatic parenchyma has a normal echotexture. No hepatic masses or intrahepatic biliary dilatation. Th e contour of the hepatic margin is maintained. Main portal vein is patent. Appropriate direction of flow. Common bile duct diameter is 0.5 cm. Within the lumen of the gallbladder, at the level of the gallbladder fundus, there are multiple echog enic foci with posterior acoustic shadowing compatible with cholelithiasis. Mild distention of the ga llbladder. Gallbladder wall is not thickened. No pericholecystic fluid. Negative Molina's sign. Left and right kidney have a normal cortical echotexture. Bilaterally, no hydronephrosis. Right kidne y measures 8.8 x 4.4 x 4.1 cm. Left kidney measures 4.2 x 4.6 x 8.2 cm. Spleen demonstrates calcified granulomas and measures 8.4 cm in maximum dimension. Bilateral pleural effusions are noted. IMPRESSION: 1. Sonographic evidence of cholelithiasis without sonographic evidence of cholecystitis. HIDA scan i f clinically warranted. 2. Bilateral pleural effusions. POS: PPP
[2018-05-28] MEDS: Vancomycin HCl 750 MG in Sodium Chloride 0.9% 250 ML 250 ML IVPB SCH (14:30)
[2018-05-28] MEDS ORDERED: Nitroglycerin 2% Ointment 1 INCH/1 GM Packet TOP SCH ×2 (15:30→17:00)
[2018-05-28] MEDS ORDERED: Furosemide 20 MG/2 ML VIAL SLOW IVP SCH (15:45)
[2018-05-28] MEDS ORDERED: cloNIDine 0.1 MG TAB PO SCH (17:00)
[2018-05-28] MEDS: Cefepime 1 GM in Sodium Chloride 0.9% 100 ML IVPB SCH (20:23)
[2018-05-28] MEDS ORDERED: Vancomycin HCl 1 GM in Premix Bag 1 BAG IVPB SCH (21:00)
[2018-05-29] MEDS: Cefepime 1 GM in Sodium Chloride 0.9% 100 ML IVPB SCH ×2 (08:20→20:52)
[2018-05-29] MEDS: Amiodarone 200 MG TAB PO SCH ×2 (08:21→20:50)
[2018-05-29] MEDS: Enoxaparin Sodium 30 MG/0.3 ML SYRINGE SC SCH (08:21)
[2018-05-29] MEDS: hydrALAZINE 25 MG TAB PO SCH ×4 (08:21→20:50)
[2018-05-29 08:46] LABS: Anion Gap 15 mmol/L (10-20); BUN (Urea Nitrogen) 18 mg/dL (9.8-20.1); Calc. Creatinine Clearance 37 mL/min (70-130); Calcium 8.5 mg/dL (7.8-10.44); Carbon Dioxide 22 mmol/L (23-31); Chloride 105 mmol/L (98-107); Estimated GFR-MDRD 67; Glucose 93 mg/dL (83-110); Potassium 4.1 mmol/L (3.5-5.1); Sodium 138 mmol/L (136-145)
[2018-05-29 08:54] LABS: Band 16 % (5-11); Hemoglobin 10.1 g/dL (12.0-16.0); Lymphocytes 20 % (21-51); MDiff Complete? YES; Mean Corpuscular HGB CONC 32.9 g/dL (32.0-36.0); Mean Corpuscular Hemoglobin 30.3 pg (27.0-31.0); Mean Corpuscular Volume 92.3 fL (78.0-98.0); Mean Platelet Volume 7.1 fL (7.4-10.4); Monocytes 6 % (0-10); Neutrophil 58 % (42-75); Platelet Count 341 thou/uL (130-400); RBC Distribution Width 14.7 % (11.5-14.5); Red Blood Cell (RBC) Count 3.33 mill/uL (4.20-5.40); White Blood Cell (WBC) Count 17.4 thou/uL (4.8-10.8)
--- NOTE | 2018-05-29 13:47 | PDOC.PN ---
- Subjective Encounter Start Date: 05/29/18 Encounter Start Time: 11:10 Patient feels ok. No specific complaints except for the SCD's. - Objective Resuscitation Status: Resuscitation Status DNR:Do Not Resuscitate Vital Signs & Weight: Vital Signs (12 hours) Temp Pulse Resp BP BP BP Pulse Ox 05/29/18 12:46 60 166/66 H 05/29/18 11:00 92 L 05/29/18 10:50 98 F 60 16 166/66 H 92 L 05/29/18 10:32 93 L 05/29/18 08:00 97.1 F L 55 L 18 176/78 H 96 05/29/18 04:00 97.5 F L 59 L 22 H 164/72 H 157/70 H 97 Weight Admit Weight 99 lb 8 oz Weight 104 lb 9 oz I&O: 05/28/18 05/29/18 05/30/18 06:59 06:59 06:59 Intake Total 680 Output Total 1325 Balance -645 Result Diagrams: 05/29/18 08:03 05/29/18 08:03 Radiology Reviewed by me: Yes Phys Exam - Physical Examination Constitutional: NAD Respiratory: no wheezing, no rales, no rhonchi, clear to auscultation bilateral Cardiovascular: RRR, no significant murmur, no rub Gastrointestinal: soft, non-tender, no distention, positive bowel sounds Musculoskeletal: no edema Neurological: non-focal Psychiatric: normal affect, A&O x 3 Dx/Plan (1) Leukocytosis Code(s): D72.829 - ELEVATED WHITE BLOOD CELL COUNT, UNSPECIFIED Status: Acute Comment: Unclear etiology. She does not show any signs of infection, but she has increasing leukocytosis and a significant bandemia (that is decreasing as the overall WBC count increases). She had neg BC, UA. No fever. CXR non- specific. On treatment for possible pneumonia, but sats are good today and lungs are clear. Old labs in the system show leukocytosis as well. If still elevated tomorrow, will try to discuss with PCP to see if Dr. Lamas knows anything about it. (2) Acute GI bleeding Code(s): K92.2 - GASTROINTESTINAL HEMORRHAGE, UNSPECIFIED Status: Acute Comment: Secondary to gastric ulcers, PPI, avoid anticoagulation, appreciate GI assistance (3) Acute blood loss anemia Code(s): D62 - ACUTE POSTHEMORRHAGIC ANEMIA Status: Acute Comment: s/p 2u PRBC's, serial H/H, stable currently (4) Atrial fibrillation with RVR Code(s): I48.91 - UNSPECIFIED ATRIAL FIBRILLATION Status: Acute Comment: Apparent new-onset, no anticoagulation due to active GI bleeding, converted to SR. continue Digoxin 0.125mg. Metoprolol increased to 100 mg q day. (5) Gastric ulcer Code(s): K25.9 - GASTRIC ULCER, UNSP ACUTE OR CHRONIC, W/O HEMOR OR PERF Status: Acute Comment: Non-bleeding, clean base. PPI. (6) H pylori ulcer Code(s): K27.9 - PEPTIC ULC, SITE UNSP, UNSP AC OR CHR, W/O HEMOR OR PERF; B96.81 - HELICOBACTER PYLORI THE CAUSE OF DISEASES CLASSD ELSWHR Status: Acute Comment: Will need treatment. On other abx now. (7) Pulmonary edema Code(s): J81.1 - CHRONIC PULMONARY EDEMA Status: Acute Comment: Resolved (8) HTN (hypertension) Code(s): I10 - ESSENTIAL (PRIMARY) HYPERTENSION Status: Chronic Qualifiers: Hypertension type: essential hypertension Qualified Code(s): I10 - Essential (primary) hypertension Comment: Resume home BP regime. BP very high yesterday. Spoke with her daughter yesterday. Not unusual for her to have BP greater than 200 at home. Used multiple doses of IV Hydralazine, nitropaste and lasix to improve bp. Better today. Has isolated systolic htn today. (9) Hypothyroidism Code(s): E03.9 - HYPOTHYROIDISM, UNSPECIFIED Status: Chronic Comment: Continue Levothyroxine - Plan * Discussed the situation with the patient and her family today. need to keep one more day and recheck the wbc. If up, talk to Cydney.
[2018-05-29] MEDS: Vancomycin HCl 750 MG in Sodium Chloride 0.9% 250 ML 250 ML IVPB SCH (14:34)
[2018-05-30 05:40] LABS: Band 13 % (5-11); Eosinophils 1 % (0-10); Hemoglobin 9.4 g/dL (12.0-16.0); Lymphocytes 11 % (21-51); MDiff Complete? YES; Mean Corpuscular HGB CONC 33.2 g/dL (32.0-36.0); Mean Corpuscular Hemoglobin 30.5 pg (27.0-31.0); Mean Corpuscular Volume 91.8 fL (78.0-98.0); Mean Platelet Volume 7.1 fL (7.4-10.4); Metamyelocyte 2 % (0-0); Monocytes 8 % (0-10); Myelocyte 5 % (0-0); Neutrophil 60 % (42-75); Platelet Count 316 thou/uL (130-400); RBC Distribution Width 14.6 % (11.5-14.5); Red Blood Cell (RBC) Count 3.07 mill/uL (4.20-5.40); White Blood Cell (WBC) Count 16.4 thou/uL (4.8-10.8)
[2018-05-30 05:49] LABS: Anion Gap 11 mmol/L (10-20); BUN (Urea Nitrogen) 13 mg/dL (9.8-20.1); Calc. Creatinine Clearance 39 mL/min (70-130); Calcium 8.2 mg/dL (7.8-10.44); Carbon Dioxide 25 mmol/L (23-31); Chloride 104 mmol/L (98-107); Estimated GFR-MDRD 67; Glucose 87 mg/dL (83-110); Potassium 4.3 mmol/L (3.5-5.1); Sodium 136 mmol/L (136-145)
[2018-05-30] MEDS: hydrALAZINE 20 MG/ML VIAL SLOW IVP PRN (06:02)
[2018-05-30] MEDS: Amiodarone 200 MG TAB PO SCH ×2 (07:53→20:50)
[2018-05-30] MEDS: Cefepime 1 GM in Sodium Chloride 0.9% 100 ML IVPB SCH (07:53)
[2018-05-30] MEDS: Enoxaparin Sodium 30 MG/0.3 ML SYRINGE SC SCH (07:53)
[2018-05-30] MEDS: hydrALAZINE 25 MG TAB PO SCH ×4 (08:06→21:04)
--- NOTE | 2018-05-30 11:47 | PDOC.CTH ---
Cardiology Progress Note - Subjective No new issues. No chest pain, tightness, pressure. - Objective Vital Signs Temp Pulse Resp BP BP BP Pulse Ox 05/30/18 11:26 97.7 F 54 L 20 181/65 H 92 L 05/30/18 08:06 61 172/64 H 05/30/18 08:00 92 L 05/30/18 07:40 98.2 F 54 L 21 H 172/64 H 92 L 05/30/18 06:02 52 L 206/64 H 05/30/18 04:00 97.5 F L 52 L 16 206/64 H 93 L 05/29/18 23:56 97.8 F 55 L 16 193/76 H 92 L Admit Weight 99 lb 8 oz Weight 111 lb 05/29/18 05/30/18 05/31/18 06:59 06:59 06:59 Intake Total 680 830 Output Total 1325 375 Balance -645 455 - Physical Examination General/Neuro: alert & oriented x3, NAD Neck: no JVD present Lungs: unlabored respirations Heart: RRR Abdomen: NT/ND Extremities: other: (no edema.) - Labs Result Diagrams: 05/30/18 04:05 05/30/18 04:05 - Assessment/Plan 1. New onset Afib, in sinus now. 2. Upper GI bleed 3. Acute blood loss anemia 4. HTN PLAN: - Will increase hydralazine to 75 mg QID - Continue BB - Not a candidate for full anticoagulation due to GI bleed. - I spoke with Dr. Caban and he is ok with starting low dose aspirin on discharge. Will need PPI as long as she is on aspirin. - Continue amiodarone load at 400 mg BID for the next 8 days then down to 200 mg daily.
[2018-05-30 15:03] LABS: Vancomycin, Trough 7.6 ug/mL
--- NOTE | 2018-05-30 15:59 | PDOC.PN ---
- Subjective Encounter Start Date: 05/30/18 Encounter Start Time: 12:00 Eager to go home. Says she is slightly more short of breath today compared to yesterday, but ok. Not on any oxygen. Ate a sandwich at lunch which was not on her modified diet. Tolerated it well. Told the YARD RIGGER that she feels like food sometimes sticks in her esophagus. Told me it is worse with water. - Objective Resuscitation Status: Resuscitation Status DNR:Do Not Resuscitate Vital Signs & Weight: Vital Signs (12 hours) Temp Pulse Resp BP BP BP Pulse Ox 05/30/18 13:06 60 143/61 H 05/30/18 11:26 97.7 F 54 L 20 181/65 H 92 L 05/30/18 08:06 61 172/64 H 05/30/18 08:00 92 L 05/30/18 07:40 98.2 F 54 L 21 H 172/64 H 92 L 05/30/18 06:02 52 L 206/64 H 05/30/18 04:00 97.5 F L 52 L 16 206/64 H 93 L Weight Admit Weight 99 lb 8 oz Weight 111 lb I&O: 05/29/18 05/30/18 05/31/18 06:59 06:59 06:59 Intake Total 680 830 Output Total 1325 375 Balance -645 455 Result Diagrams: 05/30/18 04:05 05/30/18 04:05 Phys Exam - Physical Examination Constitutional: NAD Respiratory: no wheezing Fine rales, left base. Cardiovascular: RRR, no significant murmur, no rub Gastrointestinal: soft, non-tender, no distention, positive bowel sounds Musculoskeletal: no edema Psychiatric: normal affect, A&O x 3 Dx/Plan (1) Leukocytosis Code(s): D72.829 - ELEVATED WHITE BLOOD CELL COUNT, UNSPECIFIED Status: Acute Comment: Slightly better today. Unclear etiology. She does not show any signs of infection, but she has increasing leukocytosis and a significant bandemia (that is decreasing as the overall WBC count increases). She had neg BC, UA. No fever. CXR non-specific. On treatment for possible pneumonia, but sats are good today and lungs are clear. Old labs in the system show leukocytosis as well. Tried to call PCP, but office closed until . Concerned about possible chronic aspiration. (2) Acute GI bleeding Code(s): K92.2 - GASTROINTESTINAL HEMORRHAGE, UNSPECIFIED Status: Acute Comment: Secondary to gastric ulcers, PPI, avoid anticoagulation, appreciate GI assistance (3) Acute blood loss anemia Code(s): D62 - ACUTE POSTHEMORRHAGIC ANEMIA Status: Acute Comment: s/p 2u PRBC's, serial H/H, stable currently (4) Atrial fibrillation with RVR Code(s): I48.91 - UNSPECIFIED ATRIAL FIBRILLATION Status: Acute Comment: Apparent new-onset, no anticoagulation due to active GI bleeding, converted to SR. continue Digoxin 0.125mg. Metoprolol increased to 100 mg q day. Continue Amio oral load per Cardiology recs. (5) Gastric ulcer Code(s): K25.9 - GASTRIC ULCER, UNSP ACUTE OR CHRONIC, W/O HEMOR OR PERF Status: Acute Comment: Non-bleeding, clean base. PPI. (6) H pylori ulcer Code(s): K27.9 - PEPTIC ULC, SITE UNSP, UNSP AC OR CHR, W/O HEMOR OR PERF; B96.81 - HELICOBACTER PYLORI THE CAUSE OF DISEASES CLASSD ELSWHR Status: Acute Comment: Will need treatment. On other abx now. (7) Pulmonary edema Code(s): J81.1 - CHRONIC PULMONARY EDEMA Status: Acute Comment: Resolved (8) HTN (hypertension) Code(s): I10 - ESSENTIAL (PRIMARY) HYPERTENSION Status: Chronic Qualifiers: Hypertension type: essential hypertension Qualified Code(s): I10 - Essential (primary) hypertension Comment: Resume home BP regime. Spoke with her daughter yesterday. Not unusual for her to have BP greater than 200 at home. Better today. Has isolated systolic htn today. Hydralazine dose increased by Cardiology. (9) Hypothyroidism Code(s): E03.9 - HYPOTHYROIDISM, UNSPECIFIED Status: Chronic Comment: Continue Levothyroxine (10) Dysphagia Code(s): R13.10 - DYSPHAGIA, UNSPECIFIED Status: Acute Comment: Had MBS today. Had deep penetration of thin liquids. YARD RIGGER recommends thickened liquids. - Plan * Keep her here one more day to ensure the leukocytosis continues to improve. Start thickened liquids.
--- NOTE | 2018-05-30 16:01 | RAD ---
ONE VIEW CHEST: COMPARISON: 05/28/18. HISTORY: Leukocytosis. Left basilar rales. FINDINGS: Persistent pleural and parenchymal changes of the left lung base. Persistent cardiomegaly. Atherosc lerosis of the aorta is noted. Stable hyperinflation of the lung parenchyma. There is no pneumothor ax. There is a rightward curvature of the upper lumbar spine. Oral contrast is noted in the stomach . IMPRESSION: Persistent pleural and parenchymal changes of the left lung base. Continued surveillance is recommen ded. POS: LANE
--- NOTE | 2018-05-30 16:34 | RAD ---
MODIFIED BARIUM SWALLOW WITH SPEECH THERAPY: HISTORY: Dysphagia, unspecified, R13.10. Feeding difficulties, R63.3. COMPARISON: None. TECHNIQUE/FINDINGS: Fluoroscopy is performed for the speech pathologist. Multiple consistency contrast was given. There was penetration without aspiration with thin liquid contrast. IMPRESSION: Penetration without aspiration of thin liquid contrast. FLUOROSCOPY TIME: 1.8 minutes FLUOROSCOPY DOSE: 0.683 Gy per cm2. POS: [facility]
[2018-05-30] MEDS: Vancomycin HCl 750 MG in Sodium Chloride 0.9% 250 ML 250 ML IVPB SCH (17:35)
[2018-05-31] MEDS: cloNIDine 0.1 MG TAB PO PRN ×2 (00:20→22:53)
[2018-05-31] MEDS ORDERED: Vancomycin HCl 500 MG in Sodium Chloride 0.9% 100 ML IVPB SCH (03:00)
[2018-05-31 05:24] LABS: Anion Gap 12 mmol/L (10-20); BUN (Urea Nitrogen) 14 mg/dL (9.8-20.1); Calc. Creatinine Clearance 41 mL/min (70-130); Calcium 8.5 mg/dL (7.8-10.44); Carbon Dioxide 21 mmol/L (23-31); Chloride 107 mmol/L (98-107); Estimated GFR-MDRD 71; Glucose 84 mg/dL (83-110); Potassium 4.4 mmol/L (3.5-5.1); Sodium 136 mmol/L (136-145)
[2018-05-31] MEDS: Vancomycin HCl 500 MG in Sodium Chloride 0.9% 100 ML IVPB SCH ×2 (06:07→18:47)
[2018-05-31 06:14] LABS: Band 19 % (5-11); Eosinophils 2 % (0-10); Hemoglobin 9.3 g/dL (12.0-16.0); Lymphocytes 17 % (21-51); MDiff Complete? YES; Mean Corpuscular HGB CONC 33.5 g/dL (32.0-36.0); Mean Corpuscular Hemoglobin 31.2 pg (27.0-31.0); Mean Corpuscular Volume 93.1 fL (78.0-98.0); Mean Platelet Volume 7.5 fL (7.4-10.4); Monocytes 4 % (0-10); Myelocyte 1 % (0-0); Neutrophil 57 % (42-75); Platelet Count 349 thou/uL (130-400); RBC Distribution Width 14.7 % (11.5-14.5); Red Blood Cell (RBC) Count 2.98 mill/uL (4.20-5.40); White Blood Cell (WBC) Count 17.7 thou/uL (4.8-10.8)
[2018-05-31] MEDS: Enoxaparin Sodium 30 MG/0.3 ML SYRINGE SC SCH (09:33)
[2018-05-31] MEDS: Amiodarone 200 MG TAB PO SCH ×2 (09:34→21:01)
[2018-05-31] MEDS: hydrALAZINE 25 MG TAB PO SCH ×4 (09:35→21:00)
[2018-05-31] MEDS: Cefepime 1 GM in Sodium Chloride 0.9% 100 ML IVPB SCH (09:39)
--- NOTE | 2018-05-31 12:53 | PDOC.PN ---
- Subjective Encounter Start Date: 05/31/18 Encounter Start Time: 10:50 Nurse reports the patient has become confused today. Was oriented yesterday and seemed better this morning. Patient denies complaints. - Objective Resuscitation Status: Resuscitation Status DNR:Do Not Resuscitate Vital Signs & Weight: Vital Signs (12 hours) Temp Pulse Pulse Resp BP BP BP 05/31/18 11:43 97.5 F L 52 L 92 H 05/31/18 10:53 51 L 137/64 05/31/18 09:35 57 L 166/67 H 05/31/18 08:12 97.4 F L 54 L 18 166/67 H 05/31/18 08:00 05/31/18 04:00 97.4 F L 52 L 18 BP Pulse Ox Pulse Ox 05/31/18 11:43 143/57 H 92 L 05/31/18 10:53 93 L 05/31/18 09:35 05/31/18 08:12 92 L 05/31/18 08:00 92 L 05/31/18 04:00 168/62 H 92 L Weight Admit Weight 99 lb 8 oz Weight 112 lb 6 oz I&O: 05/30/18 05/31/18 06/01/18 06:59 06:59 06:59 Intake Total 830 Output Total 375 450 Balance 455 -450 Result Diagrams: 05/31/18 03:18 05/31/18 03:18 Phys Exam - Physical Examination Constitutional: NAD Respiratory: no wheezing, no rales, no rhonchi, clear to auscultation bilateral Cardiovascular: RRR, no significant murmur, no rub Gastrointestinal: soft, no distention, positive bowel sounds Mild RLQ TTP with no guarding or rebound. Musculoskeletal: no edema Deviation from normal: Slightly flat. No oriented. Dx/Plan (1) Leukocytosis Code(s): D72.829 - ELEVATED WHITE BLOOD CELL COUNT, UNSPECIFIED Status: Acute Comment: Slightly worse today. Unclear etiology. She does not show any signs of infection, but she has increasing leukocytosis and a significant bandemia. She had neg BC, UA. No fever. CXR non-specific. On treatment for possible pneumonia, but sats are good today and lungs are clear. Old labs in the system show leukocytosis as well. Tried to call PCP, but office closed until . Concerned about possible chronic aspiration. ID consult (2) Acute GI bleeding Code(s): K92.2 - GASTROINTESTINAL HEMORRHAGE, UNSPECIFIED Status: Acute Comment: Secondary to gastric ulcers, PPI, avoid anticoagulation, appreciate GI assistance (3) Acute blood loss anemia Code(s): D62 - ACUTE POSTHEMORRHAGIC ANEMIA Status: Acute Comment: s/p 2u PRBC's, serial H/H, stable currently (4) Atrial fibrillation with RVR Code(s): I48.91 - UNSPECIFIED ATRIAL FIBRILLATION Status: Acute Comment: Apparent new-onset, no anticoagulation due to active GI bleeding, converted to SR. continue Digoxin 0.125mg. Metoprolol increased to 100 mg q day. Continue Amio oral load per Cardiology recs. (5) Gastric ulcer Code(s): K25.9 - GASTRIC ULCER, UNSP ACUTE OR CHRONIC, W/O HEMOR OR PERF Status: Acute Comment: Non-bleeding, clean base. PPI. (6) H pylori ulcer Code(s): K27.9 - PEPTIC ULC, SITE UNSP, UNSP AC OR CHR, W/O HEMOR OR PERF; B96.81 - HELICOBACTER PYLORI THE CAUSE OF DISEASES CLASSD ELSWHR Status: Acute Comment: Will need treatment. On other abx now. (7) Pulmonary edema Code(s): J81.1 - CHRONIC PULMONARY EDEMA Status: Acute Comment: Resolved (8) HTN (hypertension) Code(s): I10 - ESSENTIAL (PRIMARY) HYPERTENSION Status: Chronic Qualifiers: Hypertension type: essential hypertension Qualified Code(s): I10 - Essential (primary) hypertension Comment: Resume home BP regime. Spoke with her daughter yesterday. Not unusual for her to have BP greater than 200 at home. Better today. Has isolated systolic htn today. Hydralazine dose increased by Cardiology. (9) Hypothyroidism Code(s): E03.9 - HYPOTHYROIDISM, UNSPECIFIED Status: Chronic Comment: Continue Levothyroxine (10) Dysphagia Code(s): R13.10 - DYSPHAGIA, UNSPECIFIED Status: Acute Comment: Had MBS today. Had deep penetration of thin liquids. LYE PEEL OPERATOR recommends thickened liquids. (11) Altered mental status Code(s): R41.82 - ALTERED MENTAL STATUS, UNSPECIFIED Status: Acute - Plan * ID consult * Delerium is probably benign hospital delerium. * Mccormick out.
--- NOTE | 2018-05-31 15:19 | PDOC.CTH ---
Cardiology Progress Note - Subjective She has been more confused today. no other issues. - Objective Vital Signs Temp Pulse Pulse Resp BP BP BP 05/31/18 14:20 50 L 145/62 H 05/31/18 11:43 97.5 F L 52 L 92 H 05/31/18 10:53 51 L 137/64 05/31/18 09:35 57 L 166/67 H 05/31/18 08:12 97.4 F L 54 L 18 166/67 H 05/31/18 08:00 05/31/18 04:00 97.4 F L 52 L 18 BP Pulse Ox Pulse Ox 05/31/18 14:20 05/31/18 11:43 143/57 H 92 L 05/31/18 10:53 93 L 05/31/18 09:35 05/31/18 08:12 92 L 05/31/18 08:00 92 L 05/31/18 04:00 168/62 H 92 L Admit Weight 99 lb 8 oz Weight 112 lb 6 oz 05/30/18 05/31/18 06/01/18 06:59 06:59 06:59 Intake Total 830 Output Total 375 450 Balance 455 -450 - Physical Examination General/Neuro: NAD Neck: no JVD present Lungs: CTA, unlabored respirations Heart: RRR Abdomen: NT/ND Extremities: other: (no edema) - Telemetry Telemetry Rhythm: NSR - Labs Result Diagrams: 05/31/18 03:18 05/31/18 03:18 - Assessment/Plan 1. New onset Afib, in sinus now. 2. Upper GI bleed 3. Acute blood loss anemia 4. HTN, better controlled. PLAN: - Continue BB and hydralazine - Not a candidate for full anticoagulation due to GI bleed. - Will start low dose aspirin tomorrow and PPI daily as long as she is on aspirin. . - Continue amiodarone load at 400 mg BID for the next 7 days then down to 200 mg daily.
[2018-05-31 20:14] LABS: Legionella Urinary Ag Negative (Negative); Strep pneumo Urine Ag NEGATIVE (NEGATIVE)
--- NOTE | 2018-05-31 20:29 | CON ---
DATE OF CONSULTATION: 05/31/2018 REASON FOR CONSULTATION: Melena with possible diverticulosis and neutrophilia with bandemia. HISTORY OF PRESENT ILLNESS: An 87-year-old patient who lives by herself in [place] with family around and was brought in about 8 days ago to the hospital because of mild abdominal discomfort, weakness, nausea, melanotic stools. On arrival, her vital signs showed blood pressure 140/70, pulse 93, respirations 17, O2 sat 99%. The patient was afebrile. Neck supple. Lungs with symmetric air entry. Lungs were clear to auscultation and percussion. Abdomen was soft, without tenderness. She had an EGD and a colonoscopy. EGD was essentially normal. Colonoscopy showed diverticulosis. There was no active bleeding noted at that time. Dr. Caban performed the evaluations and probably is going to follow her in the outpatient setting. Now, there is persistence of neutrophilia with a left shift and bandemia and we were asked to evaluate. Ms. Johnson is somewhat apathetic. She is confused and recognized family member in the room with her, but could not tell me where she was. REVIEW OF SYSTEMS: Quite limited. No reported headaches. No evidence of aspiration. She eats only basically drinks Boost and eats banana and bread. That is all she does every day for many months to years now. No diarrhea. No more bleeding. No genitourinary symptoms. PAST MEDICAL HISTORY: Hypertension, GERD, dyslipidemia, hypothyroidism, insomnia, PVD, constipation, weakness. PAST SURGICAL HISTORY: Urethropexy, EGD, colonoscopy, esophageal dilation. SOCIAL HISTORY: Never a smoker, lives by herself, was very active until this illness developed, pretty much independent. FAMILY HISTORY: Noncontributory. CURRENT MEDICATIONS: Tylenol, Cordarone, aspirin, Dulcolax, cefepime, clonidine , enoxaparin, hydralazine, metoprolol, morphine, vancomycin. PHYSICAL EXAMINATION: VITAL SIGNS: T-max 97.4, blood pressure 140/57, pulse 92, respirations 18, O2 sat 92%. SKIN: Few areas of bruising in the upper extremities. Does not have a Mccormick catheter. GENERAL: Somewhat apathetic. Does not establish eye contact unless we insist. NECK: Supple. HEENT: Ocular movements are conjugate. Sclerae are white. Pupils are equal and reactive. Oral cavity was not remarkable. LUNGS: Left basilar inspiratory crackles, which are quite prominent. HEART: S1, S2 regular rate without murmurs. ABDOMEN: Soft, not distended or tender. No ascites. No bladder distention. NEUROLOGIC: Diffusely weak, but no focal weakness. She is awake, recognized her daughter, could not tell me where she was or the date. There is a lot of difficulty with sequence of events. LABORATORY DATA: White cell count is 12,000, it is up to 17,000, hemoglobin 9.3 , platelets 349,000 and 19% bands. Chemistry with a creatinine of 0.77, potassium 4.4. Urinalysis was fairly unremarkable. Microbiology with negative blood cultures at 48 hours. Chest x-ray performed yesterday shows persistent pleural and parenchymal changes in the left lung base. ASSESSMENT: History of hypertension, peripheral vascular disease with recent melena, probably secondary to diverticulosis with persistent and worsening neutrophilia with a left shift. The abdomen ultrasound showed cholelithiasis, but no gallbladder thickening. DISCUSSION: Differential diagnosis includes pneumonia, possible aspiration left lung with additional multivitamin deficiency or nutritional impairment. The relationship with the melena is not clear. This probably is just a second issue that she has developed lately. Typical pathogens associated community- acquired pneumonia include Streptococcus pneumoniae, Legionella, Mycoplasma, Staphylococcus aureus including MRSA. We will add levofloxacin to the regimen to cover atypical pathogens and continue remainder of the antimicrobials. Follow up x-rays to resolution of the process. Monitor blood cultures. Submit Legionella and strep pneumo antigen in urine. [facility]
[2018-06-01 04:53] LABS: Vancomycin, Trough 15.6 ug/mL
[2018-06-01 05:15] LABS: Band 11 % (5-11); Eosinophils 3 % (0-10); Lymphocytes 12 % (21-51); MDiff Complete? YES; Mean Corpuscular HGB CONC 32.7 g/dL (32.0-36.0); Mean Corpuscular Hemoglobin 30.2 pg (27.0-31.0); Mean Corpuscular Volume 92.4 fL (78.0-98.0); Mean Platelet Volume 7.3 fL (7.4-10.4); Metamyelocyte 2 % (0-0); Monocytes 4 % (0-10); Myelocyte 4 % (0-0); Neutrophil 64 % (42-75); Platelet Count 363 thou/uL (130-400); RBC Distribution Width 14.9 % (11.5-14.5); Red Blood Cell (RBC) Count 2.96 mill/uL (4.20-5.40); White Blood Cell (WBC) Count 16.9 thou/uL (4.8-10.8)
[2018-06-01] MEDS: Vancomycin HCl 500 MG in Sodium Chloride 0.9% 100 ML IVPB SCH ×2 (05:40→17:42)
[2018-06-01] MEDS: Cefepime 1 GM in Sodium Chloride 0.9% 100 ML IVPB SCH (08:38)
[2018-06-01] MEDS: hydrALAZINE 25 MG TAB PO SCH ×4 (08:40→20:57)
[2018-06-01] MEDS: Amiodarone 200 MG TAB PO SCH ×2 (08:41→21:03)
[2018-06-01] MEDS: Enoxaparin Sodium 30 MG/0.3 ML SYRINGE SC SCH (08:42)
--- NOTE | 2018-06-01 15:49 | PDOC.PN ---
- Subjective Encounter Start Date: 06/01/18 Encounter Start Time: 09:20 Patient without complaint. She is still confused. Her daughter was upset this morning because the patient did not immediately recognize her. - Objective Resuscitation Status: Resuscitation Status DNR:Do Not Resuscitate Vital Signs & Weight: Vital Signs (12 hours) Temp Pulse Resp BP BP Pulse Ox 06/01/18 11:57 98.3 F 52 L 16 158/57 H 91 L 06/01/18 08:40 98.3 F 50 L 16 181/64 H 181/64 H 95 06/01/18 08:00 95 06/01/18 04:00 97.7 F 48 L 20 157/62 H 96 Weight Admit Weight 99 lb 8 oz Weight 114 lb 7 oz I&O: 05/31/18 06/01/18 06/02/18 06:59 06:59 06:59 Output Total 450 Balance -450 Result Diagrams: 06/01/18 04:16 05/31/18 03:18 Phys Exam - Physical Examination Constitutional: NAD Respiratory: no wheezing Persistent left basilar rales. Very modest right basilar rales. Cardiovascular: RRR, no significant murmur Gastrointestinal: soft, non-tender, no distention, positive bowel sounds Musculoskeletal: no edema Deviation from normal: Flat Dx/Plan (1) Leukocytosis Code(s): D72.829 - ELEVATED WHITE BLOOD CELL COUNT, UNSPECIFIED Status: Acute Comment: Slightly worse today. ID suspects related to a pneumonia. Has some left basilar rales, but CXR with minimal findings. On Vanc, Cefepime and Levaquin added yesterday. Numbers slightly better today. (2) Acute GI bleeding Code(s): K92.2 - GASTROINTESTINAL HEMORRHAGE, UNSPECIFIED Status: Acute Comment: Secondary to gastric ulcers, PPI, avoid anticoagulation, appreciate GI assistance (3) Acute blood loss anemia Code(s): D62 - ACUTE POSTHEMORRHAGIC ANEMIA Status: Acute Comment: s/p 2u PRBC's, serial H/H, stable currently (4) Atrial fibrillation with RVR Code(s): I48.91 - UNSPECIFIED ATRIAL FIBRILLATION Status: Acute Comment: New onset this admission. no anticoagulation due to active GI bleeding, converted to SR. continue Amiodarone, metoprolol. (5) Gastric ulcer Code(s): K25.9 - GASTRIC ULCER, UNSP ACUTE OR CHRONIC, W/O HEMOR OR PERF Status: Acute Comment: Non-bleeding, clean base. PPI. (6) H pylori ulcer Code(s): K27.9 - PEPTIC ULC, SITE UNSP, UNSP AC OR CHR, W/O HEMOR OR PERF; B96.81 - HELICOBACTER PYLORI THE CAUSE OF DISEASES CLASSD ELSWHR Status: Acute Comment: Will need treatment. On other abx now. (7) Pulmonary edema Code(s): J81.1 - CHRONIC PULMONARY EDEMA Status: Acute Comment: Resolved (8) HTN (hypertension) Code(s): I10 - ESSENTIAL (PRIMARY) HYPERTENSION Status: Chronic Qualifiers: Hypertension type: essential hypertension Qualified Code(s): I10 - Essential (primary) hypertension Comment: Resume home BP regime. Spoke with her daughter yesterday. Not unusual for her to have BP greater than 200 at home. Better today. Has isolated systolic htn today. Hydralazine dose increased by Cardiology. (9) Hypothyroidism Code(s): E03.9 - HYPOTHYROIDISM, UNSPECIFIED Status: Chronic Comment: Continue Levothyroxine (10) Dysphagia Code(s): R13.10 - DYSPHAGIA, UNSPECIFIED Status: Acute Comment: Had MBS today. Had deep penetration of thin liquids. WEB MERCHANT recommends thickened liquids. (11) Altered mental status Code(s): R41.82 - ALTERED MENTAL STATUS, UNSPECIFIED Status: Acute Comment: Secondary to hospitalization and prolonged stay as well as underlying infection. - Plan * Long discussion with the patient's daughter. Explained why she is having the delerium. Explained that she is still very ill. Had the major GIB and anemia, the Afib with RVR and now pneumonia. Very frail still. She did get up with PT today. Ambulated a bit in the halls.
--- NOTE | 2018-06-01 18:00 | PDOC.CTH ---
Cardiology Progress Note - Subjective no new issues. - Objective Vital Signs Temp Pulse Resp BP BP Pulse Ox 06/01/18 17:29 98.3 F 59 L 16 189/67 H 92 L 06/01/18 16:10 56 L 187/77 H 06/01/18 16:09 52 L 06/01/18 11:57 98.3 F 52 L 16 158/57 H 91 L 06/01/18 08:40 98.3 F 50 L 16 181/64 H 181/64 H 95 06/01/18 08:00 95 Admit Weight 99 lb 8 oz Weight 114 lb 7 oz 05/31/18 06/01/18 06/02/18 06:59 06:59 06:59 Output Total 450 Balance -450 - Physical Examination General/Neuro: NAD Neck: no JVD present Lungs: CTA, unlabored respirations Heart: RRR Abdomen: NT/ND Extremities: other: (no edema) - Labs Result Diagrams: 06/01/18 04:16 05/31/18 03:18 - Assessment/Plan 1. New onset Afib, in sinus now. 2. Upper GI bleed 3. Acute blood loss anemia 4. HTN, better controlled. PLAN: - Continue BB and hydralazine - Not a candidate for full anticoagulation due to GI bleed. - Hgb slightly dropping. Will monitor closely. May need to stop aspirin. - Continue amiodarone load at 400 mg BID for the next 6 days then down to 200 mg daily.
[2018-06-02] MEDS: hydrALAZINE 20 MG/ML VIAL SLOW IVP PRN (00:45)
[2018-06-02] MEDS: Vancomycin HCl 500 MG in Sodium Chloride 0.9% 100 ML IVPB SCH ×2 (04:27→18:28)
[2018-06-02 05:10] LABS: Band 4 % (5-11); Eosinophils 1 % (0-10); Hemoglobin 9.3 g/dL (12.0-16.0); Hypochromia SLIGHT = 6-15 cells (100X) (0-5/hpf); Lymphocytes 7 % (21-51); MDiff Complete? YES; Mean Corpuscular HGB CONC 32.6 g/dL (32.0-36.0); Mean Corpuscular Hemoglobin 30.3 pg (27.0-31.0); Mean Corpuscular Volume 92.9 fL (78.0-98.0); Mean Platelet Volume 7.1 fL (7.4-10.4); Monocytes 7 % (0-10); Neutrophil 81 % (42-75); PLT Morphology Comment Appears Adequate; Platelet Count 370 thou/uL (130-400); RBC Distribution Width 15.1 % (11.5-14.5); Red Blood Cell (RBC) Count 3.06 mill/uL (4.20-5.40); White Blood Cell (WBC) Count 14.9 thou/uL (4.8-10.8)
[2018-06-02] MEDS: Cefepime 1 GM in Sodium Chloride 0.9% 100 ML IVPB SCH (08:01)
[2018-06-02] MEDS: hydrALAZINE 25 MG TAB PO SCH ×4 (08:02→20:19)
[2018-06-02] MEDS: Enoxaparin Sodium 30 MG/0.3 ML SYRINGE SC SCH (08:03)
[2018-06-02] MEDS: Amiodarone 200 MG TAB PO SCH ×2 (08:03→20:19)
--- NOTE | 2018-06-02 13:23 | PDOC.PN ---
- Subjective Encounter Start Date: 06/02/18 Encounter Start Time: 13:00 Feels ok. Trying to eat. No new complaints. - Objective Resuscitation Status: Resuscitation Status DNR:Do Not Resuscitate Vital Signs & Weight: Vital Signs (12 hours) Temp Pulse Resp BP BP Pulse Ox 06/02/18 12:38 54 L 186/70 H 06/02/18 12:00 98.1 F 54 L 16 186/70 H 94 L 06/02/18 08:02 56 L 215/69 H 06/02/18 08:00 91 L 06/02/18 07:20 98.1 F 56 L 16 215/69 H 91 L 06/02/18 04:00 98.0 F 56 L 16 195/70 H 92 L 06/02/18 01:45 59 L 166/64 H Weight Admit Weight 99 lb 8 oz Weight 110 lb 9 oz I&O: 06/01/18 06/02/18 06/03/18 06:59 06:59 06:59 Intake Total 340 Balance 340 Result Diagrams: 06/02/18 04:19 05/31/18 03:18 Phys Exam - Physical Examination Constitutional: NAD Looks generally better than yesterday. Bibasilar rales. Slight left upper rales. Cardiovascular: RRR, no significant murmur Gastrointestinal: soft, non-tender, no distention, positive bowel sounds Musculoskeletal: no edema Deviation from normal: Slightly flat affect. Dx/Plan (1) Leukocytosis Code(s): D72.829 - ELEVATED WHITE BLOOD CELL COUNT, UNSPECIFIED Status: Acute Comment: Continue in to improve. ID suspects related to a pneumonia. CXR with minimal findings. On Vanc, Cefepime and Levaquin. (2) Acute GI bleeding Code(s): K92.2 - GASTROINTESTINAL HEMORRHAGE, UNSPECIFIED Status: Acute Comment: Resolved. Secondary to gastric ulcers, PPI, avoid anticoagulation (3) Acute blood loss anemia Code(s): D62 - ACUTE POSTHEMORRHAGIC ANEMIA Status: Acute Comment: Stable. s/p 2u PRBC's after initial acute bleed. (4) Atrial fibrillation with RVR Code(s): I48.91 - UNSPECIFIED ATRIAL FIBRILLATION Status: Acute Comment: New onset this admission. Converted to NSR. No anticoagulation due to GI bleeding. Continue Amiodarone at 400 bid for five more days, then decrease, metoprolol. Cardiology following (5) Gastric ulcer Code(s): K25.9 - GASTRIC ULCER, UNSP ACUTE OR CHRONIC, W/O HEMOR OR PERF Status: Acute Comment: Non-bleeding, clean base. PPI. (6) H pylori ulcer Code(s): K27.9 - PEPTIC ULC, SITE UNSP, UNSP AC OR CHR, W/O HEMOR OR PERF; B96.81 - HELICOBACTER PYLORI THE CAUSE OF DISEASES CLASSD ELSWHR Status: Acute Comment: Will need treatment after she has received treatment for the pneumonia. (7) Pulmonary edema Code(s): J81.1 - CHRONIC PULMONARY EDEMA Status: Acute Comment: Concerned that is is recurring. Exam suggests it is. Lasix today. (8) HTN (hypertension) Code(s): I10 - ESSENTIAL (PRIMARY) HYPERTENSION Status: Chronic Qualifiers: Hypertension type: essential hypertension Qualified Code(s): I10 - Essential (primary) hypertension Comment: Has isolated systolic htn. Will add HCTZ as her BP appears to be fairly volume dependent. (9) Hypothyroidism Code(s): E03.9 - HYPOTHYROIDISM, UNSPECIFIED Status: Chronic Comment: Continue Levothyroxine (10) Dysphagia Code(s): R13.10 - DYSPHAGIA, UNSPECIFIED Status: Acute Comment: Had MBS. Had deep penetration of thin liquids. CLASP MACHINE OPERATOR recommends thickened liquids. (11) Altered mental status Code(s): R41.82 - ALTERED MENTAL STATUS, UNSPECIFIED Status: Acute Comment: Secondary to hospitalization and prolonged stay as well as underlying infection. - Plan * Once the leukocytosis has resolved can consider change to oral regimen. Will need recs from ID at that time.
[2018-06-02] MEDS ORDERED: Furosemide 20 MG TAB PO SCH (13:30)
[2018-06-02] MEDS: cloNIDine 0.1 MG TAB PO PRN ×2 (15:07→22:45)
[2018-06-02 16:25] LABS: Vancomycin, Trough 14.6 ug/mL
--- NOTE | 2018-06-02 17:24 | PDOC.CTH ---
Cardiology Progress Note - Subjective No new issues. Sill wanting to go home as soon as possible. - Objective Vital Signs Temp Pulse Resp BP BP BP Pulse Ox 06/02/18 15:07 199/71 H 06/02/18 14:58 98.2 F 55 L 22 H 217/69 H 92 L 06/02/18 12:38 54 L 186/70 H 06/02/18 12:00 98.1 F 54 L 16 186/70 H 94 L 06/02/18 08:02 56 L 215/69 H 06/02/18 08:00 91 L 06/02/18 07:20 98.1 F 56 L 16 215/69 H 91 L Admit Weight 99 lb 8 oz Weight 110 lb 9 oz 06/01/18 06/02/18 06/03/18 06:59 06:59 06:59 Intake Total 340 Balance 340 - Physical Examination General/Neuro: alert & oriented x3, NAD Neck: no JVD present Lungs: CTA, unlabored respirations Heart: RRR Abdomen: NT/ND Extremities: other: (no edema) - Labs Result Diagrams: 06/02/18 04:19 05/31/18 03:18 - Assessment/Plan 1. New onset Afib, in sinus now. 2. Upper GI bleed 3. Acute blood loss anemia 4. HTN PLAN: - Continue BB and hydralazine, agree with addition of HCTZ. - Hgb stab;e, continue aspirin for now. - Continue amiodarone load at 400 mg BID for the next 5 days then down to 200 mg daily.
[2018-06-03] MEDS: Vancomycin HCl 500 MG in Sodium Chloride 0.9% 100 ML IVPB SCH ×2 (05:24→17:06)
[2018-06-03] MEDS: Hydrochlorothiazide 25 MG TAB PO SCH (09:21)
[2018-06-03] MEDS: hydrALAZINE 25 MG TAB PO SCH ×4 (09:21→20:52)
[2018-06-03] MEDS: Cefepime 1 GM in Sodium Chloride 0.9% 100 ML IVPB SCH (09:22)
[2018-06-03] MEDS: Amiodarone 200 MG TAB PO SCH ×2 (09:23→20:21)
[2018-06-03] MEDS: Enoxaparin Sodium 30 MG/0.3 ML SYRINGE SC SCH (09:34)
--- NOTE | 2018-06-03 14:52 | PDOC.PN ---
- Subjective Encounter Start Date: 06/03/18 Encounter Start Time: 12:00 Subjective: is ambulating with PT and rw -: no sob or abd pain - Objective Resuscitation Status: Resuscitation Status DNR:Do Not Resuscitate MAR Reviewed: Yes Vital Signs & Weight: Vital Signs (12 hours) Temp Pulse Resp BP BP Pulse Ox Pulse Ox 06/03/18 11:43 98 F 51 L 16 169/57 H 95 06/03/18 08:46 94 L 06/03/18 07:27 97.6 F 47 L 18 149/66 H 95 06/03/18 04:00 97.5 F L 51 L 16 164/64 H 95 Pulse Ox 06/03/18 11:43 06/03/18 08:46 94 L 06/03/18 07:27 06/03/18 04:00 Weight Admit Weight 99 lb 8 oz Weight 107 lb 6 oz I&O: 06/02/18 06/03/18 06/04/18 06:59 06:59 06:59 Intake Total 340 Balance 340 Result Diagrams: 06/02/18 04:19 05/31/18 03:18 Phys Exam - Physical Examination HEENT: PERRLA, moist MMs Neck: no JVD, supple Respiratory: no wheezing, no rales Cardiovascular: RRR, no significant murmur Gastrointestinal: soft, non-tender, positive bowel sounds Musculoskeletal: no edema, pulses present Neurological: non-focal, moves all 4 limbs Dx/Plan (1) Acute GI bleeding Code(s): K92.2 - GASTROINTESTINAL HEMORRHAGE, UNSPECIFIED Status: Acute Comment: Resolved. Secondary to gastric ulcers, PPI, avoid anticoagulation (2) Acute blood loss anemia Code(s): D62 - ACUTE POSTHEMORRHAGIC ANEMIA Status: Acute Comment: Stable. s/p 3u PRBC's after initial acute bleed. (3) Altered mental status Code(s): R41.82 - ALTERED MENTAL STATUS, UNSPECIFIED Status: Acute Comment: Secondary to hospitalization and prolonged stay as well as underlying infection. (4) Gastric ulcer Code(s): K25.9 - GASTRIC ULCER, UNSP ACUTE OR CHRONIC, W/O HEMOR OR PERF Status: Acute Qualifiers: Gastric ulcer chronicity: acute Gastric ulcer complication status: with hemorrhage Qualified Code(s): K25.0 - Acute gastric ulcer with hemorrhage Comment: Non-bleeding, clean base. PPI. (5) H pylori ulcer Code(s): K27.9 - PEPTIC ULC, SITE UNSP, UNSP AC OR CHR, W/O HEMOR OR PERF; B96.81 - HELICOBACTER PYLORI THE CAUSE OF DISEASES CLASSD ELSWHR Status: Acute Comment: Will need treatment after she has received treatment for the pneumonia. (6) HTN (hypertension) Code(s): I10 - ESSENTIAL (PRIMARY) HYPERTENSION Status: Chronic Qualifiers: Hypertension type: essential hypertension Qualified Code(s): I10 - Essential (primary) hypertension (7) Hypothyroidism Code(s): E03.9 - HYPOTHYROIDISM, UNSPECIFIED Status: Chronic Qualifiers: Hypothyroidism type: unspecified Qualified Code(s): E03.9 - Hypothyroidism , unspecified Comment: Continue Levothyroxine (8) Physical deconditioning Code(s): R53.81 - OTHER MALAISE Status: Chronic (9) Afib Code(s): I48.91 - UNSPECIFIED ATRIAL FIBRILLATION Status: Acute Qualifiers: Atrial fibrillation type: chronic Qualified Code(s): I48.2 - Chronic atrial fibrillation - Plan is on vanc, cefepime and levaquin, will switch to oral antibiotics in am -: amiodarone 400mg bid for afib -: switch hydralazine to tid, hctz and toprol -: protonix bid, will treat h.pylori from am -: has amb 120ft with rw and PT, await swing bed placement * . is on thickened liq diet, may advance per speech advice. Review of Systems - Medications/Allergies Allergies/Adverse Reactions: Allergies Allergy/AdvReac Type Severity Reaction Status Date / Time Iodinated Contrast- Oral and Allergy Severe Anaphylaxis Verified 05/25/18 18:12 IV Dye amlodipine [From Norvasc] Allergy Verified 05/23/18 15:33 benazepril Allergy Verified 05/23/18 15:33 citalopram [From Celexa] Allergy Verified 05/23/18 15:33 codeine Allergy Verified 05/23/18 15:33 Fish Containing Products Allergy Verified 05/25/18 18:12 fluoxetine [From Prozac] Allergy Verified 05/23/18 15:33 omeprazole [From Prilosec] Allergy Verified 05/23/18 15:33 phenobarbital Allergy Verified 05/23/18 15:33 polyethylene glycol 3350 Allergy Verified 05/23/18 15:33 [From Miralax] shellfish derived Allergy Anaphylaxis Verified 05/25/18 18:12 Medications: Current Medications Acetaminophen (Tylenol) 1,000 mg PO Q6H PRN PRN Reason: TEMP/FEVER Last Admin: 05/25/18 19:23 Dose: 1,000 mg Amiodarone HCl (Cordarone) 400 mg PO BID [facility] Last Admin: 06/03/18 09:23 Dose: 400 mg Aspirin (Aspirin Chewable) 81 mg PO DAILY [facility] Last Admin: 06/03/18 09:22 Dose: 81 mg Bisacodyl (Dulcolax) 10 mg PO DAILYPRN PRN PRN Reason: Constipation Clonidine (Catapres) 0.1 mg PO Q6H PRN PRN Reason: .SBP >185 OR DBP >95 Last Admin: 06/02/18 22:45 Dose: 0.1 mg Enoxaparin Sodium (Lovenox) 30 mg SC 09 [facility] Last Admin: 06/03/18 09:34 Dose: 30 mg Hydralazine HCl (Apresoline) 10 mg SLOW IVP Q6H PRN PRN Reason: SBP Greater Than 170 Last Admin: 06/02/18 00:45 Dose: 10 mg Hydralazine HCl (Apresoline) 75 mg PO QID [facility] Last Admin: 06/03/18 14:14 Dose: 75 mg Hydrochlorothiazide (Hydrochlorothiazide) 25 mg PO DAILY [facility] Last Admin: 06/03/18 09:21 Dose: 25 mg Cefepime HCl 1 gm/ Sodium (Chloride) 100 mls @ 200 mls/hr IVPB 0900 [facility] Last Admin: 06/03/18 09:22 Dose: 100 mls Vancomycin HCl 500 mg/ Sodium (Chloride) 100 mls @ 100 mls/hr IVPB 0500,1700 [facility] Last Admin: 06/03/18 05:24 Dose: 100 mls Levofloxacin 500 mg/ Device 100 mls @ 100 mls/hr IVPB Q24HR [facility] Last Admin: 06/02/18 15:07 Dose: 100 mls Metoprolol Succinate (Toprol Xl) 100 mg PO DAILY [facility] Last Admin: 06/03/18 09:21 Dose: 100 mg Miscellaneous Medication (Pharmacy To Dose) 1 each IVPB DAILY [facility] Last Admin: 06/03/18 09:24 Dose: Not Given Pantoprazole Sodium (Protonix) 40 mg PO BID [facility] Last Admin: 06/03/18 09:24 Dose: 40 mg Potassium Chloride (Klor-Con) 20 meq PO BID-WM [facility] Last Admin: 06/03/18 14:15 Dose: 20 meq Sodium Chloride (Flush - Normal Saline) 10 ml IVF Q12HR [facility] Last Admin: 06/03/18 09:24 Dose: 10 ml Sodium Chloride (Flush - Normal Saline) 10 ml IVF PRN PRN PRN Reason: Saline Flush Last Admin: 06/02/18 20:19 Dose: 10 ml
--- NOTE | 2018-06-03 15:33 | PDOC.CTH ---
Cardiology Progress Note - Subjective No new issues. wants to go home. - Objective Vital Signs Temp Pulse Resp BP BP Pulse Ox Pulse Ox 06/03/18 11:43 98 F 51 L 16 169/57 H 95 06/03/18 08:46 94 L 06/03/18 07:27 97.6 F 47 L 18 149/66 H 95 06/03/18 04:00 97.5 F L 51 L 16 164/64 H 95 Pulse Ox 06/03/18 11:43 06/03/18 08:46 94 L 06/03/18 07:27 06/03/18 04:00 Admit Weight 99 lb 8 oz Weight 107 lb 6 oz 06/02/18 06/03/18 06/04/18 06:59 06:59 06:59 Intake Total 340 Balance 340 - Physical Examination General/Neuro: NAD Neck: no JVD present Lungs: unlabored respirations Heart: RRR Abdomen: NT/ND Extremities: other: (no edema.) - Labs Result Diagrams: 06/02/18 04:19 05/31/18 03:18 - Assessment/Plan 1. New onset Afib, in sinus now. 2. Upper GI bleed 3. Acute blood loss anemia 4. HTN PLAN: - Continue current BP regimen, will add aldactone low dose and will stop potassium supplements. - Hgb stable, continue aspirin. - Continue amiodarone load at 400 mg BID for the next 4 days then down to 200 mg daily. - Home anytime from cardiac perspective - Will sign off. Please call with any questions.
[2018-06-04] MEDS: Vancomycin HCl 500 MG in Sodium Chloride 0.9% 100 ML IVPB SCH (04:39)
[2018-06-04] MEDS: cloNIDine 0.1 MG TAB PO PRN (04:50)
[2018-06-04] MEDS: Cefepime 1 GM in Sodium Chloride 0.9% 100 ML IVPB SCH (08:22)
[2018-06-04] MEDS: Spironolactone 25 MG TAB PO SCH (08:23)
[2018-06-04] MEDS: Hydrochlorothiazide 25 MG TAB PO SCH (08:23)
[2018-06-04] MEDS: hydrALAZINE 25 MG TAB PO SCH ×4 (08:24→19:27)
[2018-06-04] MEDS: Amiodarone 200 MG TAB PO SCH ×2 (08:24→19:28)
[2018-06-04] MEDS: Enoxaparin Sodium 30 MG/0.3 ML SYRINGE SC SCH (08:25)
[2018-06-04] MEDS: Cefdinir 300 MG CAP PO SCH ×2 (09:22→19:27)
--- NOTE | 2018-06-04 13:55 | PDOC.PN ---
- Subjective Encounter Start Date: 06/04/18 Encounter Start Time: 13:00 Subjective: no sob, is awake and responds well to verbal questions - Objective Resuscitation Status: Resuscitation Status DNR:Do Not Resuscitate MAR Reviewed: Yes Vital Signs & Weight: Vital Signs (12 hours) Temp Pulse Resp BP BP Pulse Ox 06/04/18 12:28 174/61 H 06/04/18 11:04 96 06/04/18 08:44 46 L 06/04/18 08:24 146/55 H 06/04/18 08:00 97.4 F L 16 146/55 H 94 L 06/04/18 04:50 199/65 H 06/04/18 04:44 98.1 F 50 L 18 199/65 H 92 L Weight Admit Weight 99 lb 8 oz Weight 3.884 oz I&O: 06/03/18 06/04/18 06/05/18 06:59 06:59 06:59 Intake Total 280 Balance 280 Result Diagrams: 06/02/18 04:19 05/31/18 03:18 Phys Exam - Physical Examination HEENT: PERRLA, moist MMs Neck: no JVD, supple Respiratory: no wheezing, no rales Cardiovascular: RRR, no significant murmur Gastrointestinal: soft, non-tender, positive bowel sounds Musculoskeletal: no edema, pulses present Neurological: non-focal, moves all 4 limbs Psychiatric: normal affect, A&O x 3 Dx/Plan (1) Acute GI bleeding Code(s): K92.2 - GASTROINTESTINAL HEMORRHAGE, UNSPECIFIED Status: Acute Comment: Resolved. Secondary to gastric ulcers, PPI, avoid anticoagulation (2) Acute blood loss anemia Code(s): D62 - ACUTE POSTHEMORRHAGIC ANEMIA Status: Acute Comment: Stable. s/p 3u PRBC's after initial acute bleed. (3) Altered mental status Code(s): R41.82 - ALTERED MENTAL STATUS, UNSPECIFIED Status: Acute Comment: Secondary to hospitalization and prolonged stay as well as underlying infection. (4) Gastric ulcer Code(s): K25.9 - GASTRIC ULCER, UNSP ACUTE OR CHRONIC, W/O HEMOR OR PERF Status: Acute Qualifiers: Gastric ulcer chronicity: acute Gastric ulcer complication status: with hemorrhage Qualified Code(s): K25.0 - Acute gastric ulcer with hemorrhage Comment: Non-bleeding, clean base. PPI. (5) H pylori ulcer Code(s): K27.9 - PEPTIC ULC, SITE UNSP, UNSP AC OR CHR, W/O HEMOR OR PERF; B96.81 - HELICOBACTER PYLORI THE CAUSE OF DISEASES CLASSD ELSWHR Status: Acute Comment: Will need treatment after she has received treatment for the pneumonia. (6) HTN (hypertension) Code(s): I10 - ESSENTIAL (PRIMARY) HYPERTENSION Status: Chronic Qualifiers: Hypertension type: essential hypertension Qualified Code(s): I10 - Essential (primary) hypertension (7) Hypothyroidism Code(s): E03.9 - HYPOTHYROIDISM, UNSPECIFIED Status: Chronic Qualifiers: Hypothyroidism type: unspecified Qualified Code(s): E03.9 - Hypothyroidism , unspecified Comment: Continue Levothyroxine (8) Physical deconditioning Code(s): R53.81 - OTHER MALAISE Status: Chronic (9) Afib Code(s): I48.91 - UNSPECIFIED ATRIAL FIBRILLATION Status: Acute Qualifiers: Atrial fibrillation type: chronic Qualified Code(s): I48.2 - Chronic atrial fibrillation - Plan awaiting placement -: dc iv antibiotics, omnicef oral -: amiodarone 400mg bid x 3 days then 200mg daily thereafter -: to ambulate as tolerated -: wean and dc oxygen * . Review of Systems - Medications/Allergies Allergies/Adverse Reactions: Allergies Allergy/AdvReac Type Severity Reaction Status Date / Time Iodinated Contrast- Oral and Allergy Severe Anaphylaxis Verified 05/25/18 18:12 IV Dye amlodipine [From Norvasc] Allergy Verified 05/23/18 15:33 benazepril Allergy Verified 05/23/18 15:33 citalopram [From Celexa] Allergy Verified 05/23/18 15:33 codeine Allergy Verified 05/23/18 15:33 Fish Containing Products Allergy Verified 05/25/18 18:12 fluoxetine [From Prozac] Allergy Verified 05/23/18 15:33 omeprazole [From Prilosec] Allergy Verified 05/23/18 15:33 phenobarbital Allergy Verified 05/23/18 15:33 polyethylene glycol 3350 Allergy Verified 05/23/18 15:33 [From Miralax] shellfish derived Allergy Anaphylaxis Verified 05/25/18 18:12 Medications: Current Medications Acetaminophen (Tylenol) 1,000 mg PO Q6H PRN PRN Reason: TEMP/FEVER Last Admin: 05/25/18 19:23 Dose: 1,000 mg Amiodarone HCl (Cordarone) 400 mg PO BID [facility] Last Admin: 06/04/18 08:24 Dose: 400 mg Aspirin (Aspirin Chewable) 81 mg PO DAILY [facility] Last Admin: 06/04/18 08:24 Dose: 81 mg Bisacodyl (Dulcolax) 10 mg PO DAILYPRN PRN PRN Reason: Constipation Cefdinir (Omnicef) 300 mg PO BID [facility] Last Admin: 06/04/18 09:22 Dose: 300 mg Clonidine (Catapres) 0.1 mg PO Q6H PRN PRN Reason: .SBP >185 OR DBP >95 Last Admin: 06/04/18 04:50 Dose: 0.1 mg Enoxaparin Sodium (Lovenox) 30 mg SC 0900 [facility] Last Admin: 06/04/18 08:25 Dose: 30 mg Hydralazine HCl (Apresoline) 10 mg SLOW IVP Q6H PRN PRN Reason: SBP Greater Than 170 Last Admin: 06/02/18 00:45 Dose: 10 mg Hydralazine HCl (Apresoline) 75 mg PO QID [facility] Last Admin: 06/04/18 12:28 Dose: 75 mg Hydrochlorothiazide (Hydrochlorothiazide) 25 mg PO DAILY [facility] Last Admin: 06/04/18 08:23 Dose: 25 mg Metoprolol Succinate (Toprol Xl) 100 mg PO DAILY [facility] Last Admin: 06/04/18 08:25 Dose: Not Given Pantoprazole Sodium (Protonix) 40 mg PO BID [facility] Last Admin: 06/04/18 08:24 Dose: 40 mg Sodium Chloride (Flush - Normal Saline) 10 ml IVF Q12HR [facility] Last Admin: 06/04/18 08:25 Dose: 10 ml Sodium Chloride (Flush - Normal Saline) 10 ml IVF PRN PRN PRN Reason: Saline Flush Last Admin: 06/02/18 20:19 Dose: 10 ml Spironolactone (Aldactone) 12.5 mg PO QAM-WM [facility] Last Admin: 06/04/18 08:23 Dose: 12.5 mg
--- NOTE | 2018-06-04 17:56 | EKG ---
Test Reason : Blood Pressure : / mmHG Vent. Rate : 089 BPM Atrial Rate : 089 BPM P-R Int : 142 ms QRS Dur : 084 ms QT Int : 390 ms P-R-T Axes : 046 006 065 degrees QTc Int : 474 ms Normal sinus rhythm Prolonged QT Abnormal ECG Confirmed by BARAK ZULETA DO ([id number]), art editor FRANCHESKA BOWMAN ([id number]) on 06/04/2018 5:55:32 PM Referred By: Confirmed By:BARAK ZULETA DO
[2018-06-05] MEDS: hydrALAZINE 25 MG TAB PO SCH ×4 (08:05→21:51)
[2018-06-05] MEDS: Cefdinir 300 MG CAP PO SCH (08:05)
[2018-06-05] MEDS: Hydrochlorothiazide 25 MG TAB PO SCH (08:05)
[2018-06-05] MEDS: Spironolactone 25 MG TAB PO SCH (08:05)
[2018-06-05] MEDS: Enoxaparin Sodium 30 MG/0.3 ML SYRINGE SC SCH (08:05)
[2018-06-05] MEDS: Amiodarone 200 MG TAB PO SCH (08:06)
--- NOTE | 2018-06-05 13:28 | PDOC.PN ---
- Subjective Encounter Start Date: 06/05/18 Encounter Start Time: 08:00 Subjective: no sob or palp -: is awake and follows verbal stimuli - Objective Resuscitation Status: Resuscitation Status DNR:Do Not Resuscitate MAR Reviewed: Yes Vital Signs & Weight: Vital Signs (12 hours) Temp Pulse Resp BP BP Pulse Ox 06/05/18 12:33 50 L 158/60 H 06/05/18 08:05 53 L 175/69 H 06/05/18 08:00 97.8 F 48 L 16 175/69 H 96 06/05/18 07:35 96 Weight Admit Weight 99 lb 8 oz Weight 3.884 oz I&O: 06/04/18 06/05/18 06/06/18 06:59 06:59 06:59 Intake Total 280 600 Balance 280 600 Result Diagrams: 06/02/18 04:19 05/31/18 03:18 Phys Exam - Physical Examination HEENT: PERRLA, moist MMs Neck: no JVD, supple Respiratory: no wheezing, no rales Cardiovascular: RRR, no significant murmur Gastrointestinal: soft, non-tender, positive bowel sounds Musculoskeletal: no edema, pulses present Neurological: non-focal, moves all 4 limbs Psychiatric: A&O x 3 Dx/Plan (1) Acute GI bleeding Code(s): K92.2 - GASTROINTESTINAL HEMORRHAGE, UNSPECIFIED Status: Acute Comment: Resolved. Secondary to gastric ulcers, PPI, avoid anticoagulation (2) Acute blood loss anemia Code(s): D62 - ACUTE POSTHEMORRHAGIC ANEMIA Status: Acute Comment: Stable. s/p 3u PRBC's after initial acute bleed. (3) Altered mental status Code(s): R41.82 - ALTERED MENTAL STATUS, UNSPECIFIED Status: Acute Comment: Secondary to hospitalization and prolonged stay as well as underlying infection. (4) Gastric ulcer Code(s): K25.9 - GASTRIC ULCER, UNSP ACUTE OR CHRONIC, W/O HEMOR OR PERF Status: Acute Qualifiers: Gastric ulcer chronicity: acute Gastric ulcer complication status: with hemorrhage Qualified Code(s): K25.0 - Acute gastric ulcer with hemorrhage Comment: Non-bleeding, clean base. PPI. (5) H pylori ulcer Code(s): K27.9 - PEPTIC ULC, SITE UNSP, UNSP AC OR CHR, W/O HEMOR OR PERF; B96.81 - HELICOBACTER PYLORI THE CAUSE OF DISEASES CLASSD ELSWHR Status: Acute Comment: on clarithromycin, amox regimen starting 06/05/2018 (6) HTN (hypertension) Code(s): I10 - ESSENTIAL (PRIMARY) HYPERTENSION Status: Chronic Qualifiers: Hypertension type: essential hypertension Qualified Code(s): I10 - Essential (primary) hypertension (7) Hypothyroidism Code(s): E03.9 - HYPOTHYROIDISM, UNSPECIFIED Status: Chronic Qualifiers: Hypothyroidism type: unspecified Qualified Code(s): E03.9 - Hypothyroidism , unspecified Comment: Continue Levothyroxine (8) Physical deconditioning Code(s): R53.81 - OTHER MALAISE Status: Chronic (9) Afib Code(s): I48.91 - UNSPECIFIED ATRIAL FIBRILLATION Status: Acute Qualifiers: Atrial fibrillation type: chronic Qualified Code(s): I48.2 - Chronic atrial fibrillation - Plan started H.pylori treatment from today x 14 days -: hemostable -: reduce amiodarone to 200mg daily, toprol to 50mg daily -: heart rate dipping into 40's but asymptomatic -: awaiting placement * . Review of Systems - Medications/Allergies Allergies/Adverse Reactions: Allergies Allergy/AdvReac Type Severity Reaction Status Date / Time Iodinated Contrast- Oral and Allergy Severe Anaphylaxis Verified 05/25/18 18:12 IV Dye amlodipine [From Norvasc] Allergy Verified 05/23/18 15:33 benazepril Allergy Verified 05/23/18 15:33 citalopram [From Celexa] Allergy Verified 05/23/18 15:33 codeine Allergy Verified 05/23/18 15:33 Fish Containing Products Allergy Verified 05/25/18 18:12 fluoxetine [From Prozac] Allergy Verified 05/23/18 15:33 omeprazole [From Prilosec] Allergy Verified 05/23/18 15:33 phenobarbital Allergy Verified 05/23/18 15:33 polyethylene glycol 3350 Allergy Verified 05/23/18 15:33 [From Miralax] shellfish derived Allergy Anaphylaxis Verified 05/25/18 18:12 Medications: Current Medications Acetaminophen (Tylenol) 1,000 mg PO Q6H PRN PRN Reason: TEMP/FEVER Last Admin: 05/25/18 19:23 Dose: 1,000 mg Amiodarone HCl (Cordarone) 200 mg PO DAILY [facility] Amoxicillin (Amoxil) 1,000 mg PO BID [facility] Stop: 06/19/18 09:01 Aspirin (Aspirin Chewable) 81 mg PO DAILY [facility] Last Admin: 06/05/18 08:05 Dose: 81 mg Bisacodyl (Dulcolax) 10 mg PO DAILYPRN PRN PRN Reason: Constipation Clarithromycin (Biaxin) 500 mg PO BID [facility] Stop: 06/19/18 09:01 Clonidine (Catapres) 0.1 mg PO Q6H PRN PRN Reason: .SBP >185 OR DBP >95 Last Admin: 06/04/18 04:50 Dose: 0.1 mg Enoxaparin Sodium (Lovenox) 30 mg SC 09 [facility] Last Admin: 06/05/18 08:05 Dose: 30 mg Hydralazine HCl (Apresoline) 10 mg SLOW IVP Q6H PRN PRN Reason: SBP Greater Than 170 Last Admin: 06/02/18 00:45 Dose: 10 mg Hydralazine HCl (Apresoline) 75 mg PO TID [facility] Hydrochlorothiazide (Hydrochlorothiazide) 25 mg PO DAILY [facility] Last Admin: 06/05/18 08:05 Dose: 25 mg Metoprolol Succinate (Toprol Xl) 50 mg PO DAILY [facility] Pantoprazole Sodium (Protonix) 40 mg PO BID [facility] Last Admin: 06/05/18 08:06 Dose: 40 mg Sodium Chloride (Flush - Normal Saline) 10 ml IVF Q12HR [facility] Last Admin: 06/05/18 08:06 Dose: Not Given Sodium Chloride (Flush - Normal Saline) 10 ml IVF PRN PRN PRN Reason: Saline Flush Last Admin: 06/02/18 20:19 Dose: 10 ml Spironolactone (Aldactone) 12.5 mg PO QAM-[facility] Last Admin: 06/05/18 08:05 Dose: 12.5 mg
[2018-06-05] MEDS: Clarithromycin 500 MG TAB PO SCH (21:51)
[2018-06-05] MEDS: AMOXicillin 250 MG CAP PO SCH (21:52)
[2018-06-06 08:36] LABS: #Basophils 0.1 thou/uL (0.0-0.2); #Eosinphils 0.2 thou/uL (0.0-0.7); #Lymphocytes 1.7 thou/uL (1.20-3.40); #Monocytes 1.1 thou/uL (0.11-0.59); #Neutrophils 6.9 thou/uL (1.40-6.50); %Basophils 1.1 % (0.0-1.0); %Lymphocytes 16.8 % (21.0-51.0); %Monocytes 11.1 % (0.0-10.0); %Neutrophils 68.9 % (42.0-75.0); Hemoglobin 10.1 g/dL (12.0-16.0); Mean Corpuscular HGB CONC 31.7 g/dL (32.0-36.0); Mean Corpuscular Hemoglobin 29.2 pg (27.0-31.0); Mean Platelet Volume 7.3 fL (7.4-10.4); Platelet Count 366 thou/uL (130-400); RBC Distribution Width 14.8 % (11.5-14.5); Red Blood Cell (RBC) Count 3.45 mill/uL (4.20-5.40)
[2018-06-06 08:59] LABS: Anion Gap 10 mmol/L (10-20); BUN (Urea Nitrogen) 19 mg/dL (9.8-20.1); Calc. Creatinine Clearance 31 mL/min (70-130); Calcium 8.5 mg/dL (7.8-10.44); Carbon Dioxide 27 mmol/L (23-31); Chloride 101 mmol/L (98-107); Estimated GFR-MDRD 52; Glucose 81 mg/dL (83-110); Potassium 3.6 mmol/L (3.5-5.1); Sodium 134 mmol/L (136-145)
[2018-06-06] MEDS: Enoxaparin Sodium 30 MG/0.3 ML SYRINGE SC SCH (08:59)
[2018-06-06] MEDS: AMOXicillin 250 MG CAP PO SCH ×2 (08:59→21:49)
[2018-06-06] MEDS: Spironolactone 25 MG TAB PO SCH (08:59)
[2018-06-06] MEDS: Hydrochlorothiazide 25 MG TAB PO SCH (09:00)
[2018-06-06] MEDS: hydrALAZINE 25 MG TAB PO SCH ×3 (09:00→21:48)
[2018-06-06] MEDS: Clarithromycin 500 MG TAB PO SCH ×2 (09:00→21:49)
[2018-06-06] MEDS: Amiodarone 200 MG TAB PO SCH (09:01)
--- NOTE | 2018-06-06 11:06 | PDOC.PN ---
- Subjective Encounter Start Date: 06/06/18 Encounter Start Time: 10:10 Subjective: no sob or abd pain -: feels better - Objective Resuscitation Status: Resuscitation Status DNR:Do Not Resuscitate MAR Reviewed: Yes Vital Signs & Weight: Vital Signs (12 hours) Temp Pulse Resp BP BP BP Pulse Ox 06/06/18 09:00 55 L 191/67 H 06/06/18 08:00 97.5 F L 55 L 16 191/67 H 93 L 06/06/18 04:00 98.3 F 55 L 16 160/62 H 92 L Weight Admit Weight 99 lb 8 oz Weight 108 lb 0.424 oz I&O: 06/05/18 06/06/18 06/07/18 06:59 06:59 06:59 Intake Total 600 400 Balance 600 400 Result Diagrams: 06/06/18 08:08 06/06/18 08:08 Phys Exam - Physical Examination HEENT: PERRLA, moist MMs Neck: no JVD, supple Respiratory: no wheezing, no rales Cardiovascular: RRR, no significant murmur Gastrointestinal: soft, non-tender, positive bowel sounds Musculoskeletal: no edema, pulses present Neurological: non-focal, moves all 4 limbs Psychiatric: normal affect, A&O x 3 Dx/Plan (1) Acute GI bleeding Code(s): K92.2 - GASTROINTESTINAL HEMORRHAGE, UNSPECIFIED Status: Acute Comment: Resolved. Secondary to gastric ulcers, PPI, avoid anticoagulation (2) Acute blood loss anemia Code(s): D62 - ACUTE POSTHEMORRHAGIC ANEMIA Status: Acute Comment: Stable. s/p 3u PRBC's after initial acute bleed. (3) Altered mental status Code(s): R41.82 - ALTERED MENTAL STATUS, UNSPECIFIED Status: Acute Comment: Secondary to hospitalization and prolonged stay as well as underlying infection. (4) Gastric ulcer Code(s): K25.9 - GASTRIC ULCER, UNSP ACUTE OR CHRONIC, W/O HEMOR OR PERF Status: Acute Qualifiers: Gastric ulcer chronicity: acute Gastric ulcer complication status: with hemorrhage Qualified Code(s): K25.0 - Acute gastric ulcer with hemorrhage Comment: Non-bleeding, clean base. PPI. (5) H pylori ulcer Code(s): K27.9 - PEPTIC ULC, SITE UNSP, UNSP AC OR CHR, W/O HEMOR OR PERF; B96.81 - HELICOBACTER PYLORI THE CAUSE OF DISEASES CLASSD ELSWHR Status: Acute Comment: on clarithromycin, amox regimen starting 06/05/2018 (6) HTN (hypertension) Code(s): I10 - ESSENTIAL (PRIMARY) HYPERTENSION Status: Chronic Qualifiers: Hypertension type: essential hypertension Qualified Code(s): I10 - Essential (primary) hypertension (7) Hypothyroidism Code(s): E03.9 - HYPOTHYROIDISM, UNSPECIFIED Status: Chronic Qualifiers: Hypothyroidism type: unspecified Qualified Code(s): E03.9 - Hypothyroidism , unspecified Comment: Continue Levothyroxine (8) Physical deconditioning Code(s): R53.81 - OTHER MALAISE Status: Chronic (9) Afib Code(s): I48.91 - UNSPECIFIED ATRIAL FIBRILLATION Status: Acute Qualifiers: Atrial fibrillation type: chronic Qualified Code(s): I48.2 - Chronic atrial fibrillation - Plan hemostable -: awaiting placement, may dc anytime if its ready -: on amiodarone, toprol xl, hydralazine, hctz and spironolactone -: amox, biaxin for h.pylori -: is tolerating protonix with no allergic symptoms so far * . Review of Systems - Medications/Allergies Allergies/Adverse Reactions: Allergies Allergy/AdvReac Type Severity Reaction Status Date / Time Iodinated Contrast- Oral and Allergy Severe Anaphylaxis Verified 05/25/18 18:12 IV Dye amlodipine [From Norvasc] Allergy Verified 05/23/18 15:33 benazepril Allergy Verified 05/23/18 15:33 citalopram [From Celexa] Allergy Verified 05/23/18 15:33 codeine Allergy Verified 05/23/18 15:33 Fish Containing Products Allergy Verified 05/25/18 18:12 fluoxetine [From Prozac] Allergy Verified 05/23/18 15:33 omeprazole [From Prilosec] Allergy Verified 05/23/18 15:33 phenobarbital Allergy Verified 05/23/18 15:33 polyethylene glycol 3350 Allergy Verified 05/23/18 15:33 [From Miralax] shellfish derived Allergy Anaphylaxis Verified 05/25/18 18:12 Medications: Current Medications Acetaminophen (Tylenol) 1,000 mg PO Q6H PRN PRN Reason: TEMP/FEVER Last Admin: 05/25/18 19:23 Dose: 1,000 mg Amiodarone HCl (Cordarone) 200 mg PO DAILY [facility] Last Admin: 06/06/18 09:01 Dose: 200 mg Amoxicillin (Amoxil) 1,000 mg PO BID [facility] Stop: 06/19/18 09:01 Last Admin: 06/06/18 08:59 Dose: 1,000 mg Aspirin (Aspirin Chewable) 81 mg PO DAILY [facility] Last Admin: 06/06/18 09:01 Dose: 81 mg Bisacodyl (Dulcolax) 10 mg PO DAILYPRN PRN PRN Reason: Constipation Clarithromycin (Biaxin) 500 mg PO BID [facility] Stop: 06/19/18 09:01 Last Admin: 06/06/18 09:00 Dose: 500 mg Clonidine (Catapres) 0.1 mg PO Q6H PRN PRN Reason: .SBP >185 OR DBP >95 Last Admin: 06/04/18 04:50 Dose: 0.1 mg Enoxaparin Sodium (Lovenox) 30 mg SC 09 [facility] Last Admin: 06/06/18 08:59 Dose: 30 mg Hydralazine HCl (Apresoline) 10 mg SLOW IVP Q6H PRN PRN Reason: SBP Greater Than 170 Last Admin: 06/02/18 00:45 Dose: 10 mg Hydralazine HCl (Apresoline) 75 mg PO TID [facility] Last Admin: 06/06/18 09:00 Dose: 75 mg Hydrochlorothiazide (Hydrochlorothiazide) 25 mg PO DAILY [facility] Last Admin: 06/06/18 09:00 Dose: 25 mg Metoprolol Succinate (Toprol Xl) 50 mg PO DAILY [facility] Last Admin: 06/06/18 09:00 Dose: 50 mg Pantoprazole Sodium (Protonix) 40 mg PO BID [facility] Last Admin: 06/06/18 09:00 Dose: 40 mg Sodium Chloride (Flush - Normal Saline) 10 ml IVF Q12HR [facility] Last Admin: 06/06/18 09:01 Dose: Not Given Sodium Chloride (Flush - Normal Saline) 10 ml IVF PRN PRN PRN Reason: Saline Flush Last Admin: 06/02/18 20:19 Dose: 10 ml Spironolactone (Aldactone) 12.5 mg PO QA-[facility] Last Admin: 06/06/18 08:59 Dose: 12.5 mg
[2018-06-07] MEDS: AMOXicillin 250 MG CAP PO SCH (09:26)
[2018-06-07] MEDS: Clarithromycin 500 MG TAB PO SCH (09:27)
[2018-06-07] MEDS: hydrALAZINE 25 MG TAB PO SCH ×2 (09:27→15:29)
[2018-06-07] MEDS: Spironolactone 25 MG TAB PO SCH (09:28)
[2018-06-07] MEDS: Hydrochlorothiazide 25 MG TAB PO SCH (09:28)
[2018-06-07] MEDS: Enoxaparin Sodium 30 MG/0.3 ML SYRINGE SC SCH (09:28)
[2018-06-07] MEDS: Amiodarone 200 MG TAB PO SCH (09:30)
--- NOTE | 2018-06-07 11:44 | PDOC.PN ---
- Subjective Encounter Start Date: 06/07/18 Encounter Start Time: 08:00 Subjective: awake, not in distress -: no trouble breathing or palp or chest pain - Objective Resuscitation Status: Resuscitation Status DNR:Do Not Resuscitate MAR Reviewed: Yes Vital Signs & Weight: Vital Signs (12 hours) Temp Pulse Resp BP BP BP Pulse Ox 06/07/18 11:22 98.1 F 53 L 16 142/62 H 91 L 06/07/18 09:27 54 L 158/53 H 06/07/18 07:35 97.8 F 54 L 16 158/53 H 93 L 06/07/18 00:00 98.4 F 60 20 166/68 H 92 L Weight Admit Weight 99 lb 8 oz Weight 107 lb 12.897 oz I&O: 06/06/18 06/07/18 06/08/18 06:59 06:59 06:59 Intake Total 400 Balance 400 Result Diagrams: 06/06/18 08:08 06/06/18 08:08 Additional Labs: Accuchecks 06/07/18 04:49 POC Glucose 85 Phys Exam - Physical Examination HEENT: PERRLA, moist MMs Neck: no JVD, supple Respiratory: no wheezing, no rales Cardiovascular: RRR, no significant murmur Gastrointestinal: soft, non-tender, positive bowel sounds Musculoskeletal: no edema, pulses present Neurological: non-focal, moves all 4 limbs Psychiatric: A&O x 3 Dx/Plan (1) Acute GI bleeding Code(s): K92.2 - GASTROINTESTINAL HEMORRHAGE, UNSPECIFIED Status: Acute Comment: Resolved. Secondary to gastric ulcers, PPI (2) Acute blood loss anemia Code(s): D62 - ACUTE POSTHEMORRHAGIC ANEMIA Status: Acute Comment: Stable. s/p 3u PRBC's after initial acute bleed. (3) Altered mental status Code(s): R41.82 - ALTERED MENTAL STATUS, UNSPECIFIED Status: Resolved Comment: Secondary to hospitalization and prolonged stay as well as underlying infection. (4) Gastric ulcer Code(s): K25.9 - GASTRIC ULCER, UNSP ACUTE OR CHRONIC, W/O HEMOR OR PERF Status: Acute Qualifiers: Gastric ulcer chronicity: acute Gastric ulcer complication status: with hemorrhage Qualified Code(s): K25.0 - Acute gastric ulcer with hemorrhage Comment: Non-bleeding, clean base. PPI. (5) H pylori ulcer Code(s): K27.9 - PEPTIC ULC, SITE UNSP, UNSP AC OR CHR, W/O HEMOR OR PERF; B96.81 - HELICOBACTER PYLORI THE CAUSE OF DISEASES CLASSD ELSWHR Status: Acute Comment: on clarithromycin, amox regimen starting 06/05/2018 (6) HTN (hypertension) Code(s): I10 - ESSENTIAL (PRIMARY) HYPERTENSION Status: Chronic Qualifiers: Hypertension type: essential hypertension Qualified Code(s): I10 - Essential (primary) hypertension (7) Hypothyroidism Code(s): E03.9 - HYPOTHYROIDISM, UNSPECIFIED Status: Chronic Qualifiers: Hypothyroidism type: unspecified Qualified Code(s): E03.9 - Hypothyroidism , unspecified Comment: Continue Levothyroxine (8) Physical deconditioning Code(s): R53.81 - OTHER MALAISE Status: Chronic (9) Afib Code(s): I48.91 - UNSPECIFIED ATRIAL FIBRILLATION Status: Acute Qualifiers: Atrial fibrillation type: chronic Qualified Code(s): I48.2 - Chronic atrial fibrillation - Plan hemostable -: on amiodarone, toprol, hydralazine, hctz and spironolactone -: to amb with PT -: may dc anytime if placement is ready -: on amox and biaxin for h.pylori * . Review of Systems - Medications/Allergies Allergies/Adverse Reactions: Allergies Allergy/AdvReac Type Severity Reaction Status Date / Time Iodinated Contrast- Oral and Allergy Severe Anaphylaxis Verified 05/25/18 18:12 IV Dye amlodipine [From Norvasc] Allergy Verified 05/23/18 15:33 benazepril Allergy Verified 05/23/18 15:33 citalopram [From Celexa] Allergy Verified 05/23/18 15:33 codeine Allergy Verified 05/23/18 15:33 Fish Containing Products Allergy Verified 05/25/18 18:12 fluoxetine [From Prozac] Allergy Verified 05/23/18 15:33 omeprazole [From Prilosec] Allergy Verified 05/23/18 15:33 phenobarbital Allergy Verified 05/23/18 15:33 polyethylene glycol 3350 Allergy Verified 05/23/18 15:33 [From Miralax] shellfish derived Allergy Anaphylaxis Verified 05/25/18 18:12 Medications: Current Medications Acetaminophen (Tylenol) 1,000 mg PO Q6H PRN PRN Reason: TEMP/FEVER Last Admin: 05/25/18 19:23 Dose: 1,000 mg Amiodarone HCl (Cordarone) 200 mg PO DAILY [facility] Last Admin: 06/07/18 09:30 Dose: 200 mg Amoxicillin (Amoxil) 1,000 mg PO BID [facility] Stop: 06/19/18 09:01 Last Admin: 06/07/18 09:26 Dose: 1,000 mg Aspirin (Aspirin Chewable) 81 mg PO DAILY [facility] Last Admin: 06/07/18 09:30 Dose: 81 mg Bisacodyl (Dulcolax) 10 mg PO DAILYPRN PRN PRN Reason: Constipation Clarithromycin (Biaxin) 500 mg PO BID [facility] Stop: 06/19/18 09:01 Last Admin: 06/07/18 09:27 Dose: 500 mg Clonidine (Catapres) 0.1 mg PO Q6H PRN PRN Reason: .SBP >185 OR DBP >95 Last Admin: 06/04/18 04:50 Dose: 0.1 mg Enoxaparin Sodium (Lovenox) 30 mg SC 0900 [facility] Last Admin: 06/07/18 09:28 Dose: 30 mg Hydralazine HCl (Apresoline) 10 mg SLOW IVP Q6H PRN PRN Reason: SBP Greater Than 170 Last Admin: 06/02/18 00:45 Dose: 10 mg Hydralazine HCl (Apresoline) 75 mg PO TID [facility] Last Admin: 06/07/18 09:27 Dose: 75 mg Hydrochlorothiazide (Hydrochlorothiazide) 25 mg PO DAILY [facility] Last Admin: 06/07/18 09:28 Dose: 25 mg Metoprolol Succinate (Toprol Xl) 50 mg PO DAILY [facility] Last Admin: 06/07/18 09:28 Dose: 50 mg Pantoprazole Sodium (Protonix) 40 mg PO BID [facility] Last Admin: 06/07/18 09:30 Dose: 40 mg Sodium Chloride (Flush - Normal Saline) 10 ml IVF Q12HR [facility] Last Admin: 06/07/18 09:30 Dose: Not Given Sodium Chloride (Flush - Normal Saline) 10 ml IVF PRN PRN PRN Reason: Saline Flush Last Admin: 06/02/18 20:19 Dose: 10 ml Spironolactone (Aldactone) 12.5 mg PO QAM-[facility] Last Admin: 06/07/18 09:28 Dose: 12.5 mg
[2018-06-07 12:12] VITALS: BMI 21.7
[2018-06-07 15:28] VITALS: BP 144/57; TEMP 98
--- NOTE | 2018-06-08 00:20 | DIS ---
DATE OF ADMISSION: 05/23/2018 DATE OF DISCHARGE: 06/07/2018 DISCHARGE DISPOSITION: To [facility]. PRIMARY DISCHARGE DIAGNOSES: Acute blood loss anemia secondary to gastric ulcers and H. pylori posit susu status; altered mental state, resolved; deconditioning; hypertension, hypothyroidism, chronic atr ial fibrillation, which is rate controlled. PROCEDURES DONE DURING HOSPITALIZATION: Patient has had upper endoscopy done by Dr. Caban on 07/2018, which showed gastric ulcer x3 over the gastric antrum and one over the pyloric channel, the ulcer base was clean. Gastric biopsy showed mild H. pylori, chronic active gastritis. Echo with 2D Doppler showed an EF of 60-65%. [id number] tricuspid regurgitation was seen. Abdominal ultras ound showed cholelithiasis without cholecystitis. Bilateral pleural effusions were seen. Modified b arium swallow done, showed penetration without aspiration of thin liquid contrast. Blood cultures x2 , no growth. Discharge white count of 10, H&H 10 and 31, platelet count 366,000, MCV is 92, had an i nitial white count of 16 with H&H of 7 and 23, and platelet count of 233. On the day of admission, tara evan she also had 12% bands. Initial BUN and creatinine were 55 and 1.1. Discharge BUN and creatin ine is 19 and 1.0. INPATIENT CONSULTS: Dr. Canales for Cardiology, Dr. Ahmadi for Infectious Disease, Dr. Caban for G astroenterology. DISCHARGE MEDICATIONS: Amiodarone 200 mg p.o. daily, Colace 50 mg p.o. daily, amoxicillin 1000 mg p. o. twice daily for another 14 days, aspirin 81 mg p.o. daily, clarithromycin 500 mg p.o. twice daily for another 14 days, hydralazine 75 mg p.o. 3 times daily, hydrochlorothiazide 25 mg daily, Toprol-XL 50 mg daily, Protonix 40 mg twice daily for 1 month, spironolactone 12.5 mg p.o. daily. ALLERGIES: IODINE, NORVASC, BENAZEPRIL, CITALOPRAM, CODEINE, FISH OIL, PROZAC, PHENOBARBITAL, MIRALA X, SHELLFISH. DISCHARGE PLAN: Patient is to follow up with primary care physician in 1 week. She also needs follo w up with Dr. Caban in 4-6 weeks. BRIEF COURSE DURING HOSPITALIZATION: Patient initially got admitted on the after she was sent f [facility] for black stools. The patient had a hemoglobin of 7 grams. She has had upper endoscopy done, which showed 3 gastric ulcers. The patient received 2 units of packed cells b lood. She has maintained her H&H after the initial melena on admission. She had atrial fibrillation with RVR and had to be placed on amiodarone. She is currently on amiodarone 200 mg daily after load ing doses and being tapered. Her hypertension was uncontrolled and her medications were optimized. The patient has severe deconditioning and is being discharged to [facility] for further recuperation prior to going home. Please note patient's heart rate tends to run between 50 and 60 a nd she is hemodynamically stable with that. She has been started on clarithromycin and amoxicillin f or H. pylori treatment. Needs to continue these 2 for another 14 days. She also needs to continue P rotonix twice daily. A total of 35 minutes was spent on discharge plan. Please see a [id number] documentation on [facility] for the day of discharge.
== END 2018-06-07 17:20 | disposition swing bed (61) | DRG 378 ==
LOC: ERS 14:09 → 2NO 17:19 → T4-A 05-29 10:56
PROVIDERS: ADMIT Internal Medicine; ATTEND Internal Medicine
PROC: 30233N1 Transfusion of Nonautologous Red Blood Cells into Peripheral Vein, Percutaneous Approach (ICD-10-PCS; 2018-05-23)
PROC: 0DJD8ZZ Inspection of Lower Intestinal Tract, Via Natural or Artificial Opening Endoscopic (ICD-10-PCS; principal; 2018-05-24)
PROC: 0DB78ZX Excision of Stomach, Pylorus, Via Natural or Artificial Opening Endoscopic, Diagnostic (ICD-10-PCS; 2018-05-24)
DX: K92.1 Melena (principal); D62 Acute posthemorrhagic anemia; K63.3 Ulcer of intestine; J81.1 Chronic pulmonary edema; I10 Essential (primary) hypertension; K21.9 Gastro-esophageal reflux disease without esophagitis; E78.5 Hyperlipidemia, unspecified; E03.9 Hypothyroidism, unspecified; G47.00 Insomnia, unspecified; I73.9 Peripheral vascular disease, unspecified; K59.00 Constipation, unspecified; F32.9 Major depressive disorder, single episode, unspecified; Z66 Do not resuscitate; K64.4 Residual hemorrhoidal skin tags; K57.30 Diverticulosis of large intestine without perforation or abscess without bleeding; K64.8 Other hemorrhoids; K44.9 Diaphragmatic hernia without obstruction or gangrene; D72.829 Elevated white blood cell count, unspecified; B96.81 Helicobacter pylori [H. pylori] as the cause of diseases classified elsewhere; R13.10 Dysphagia, unspecified; R41.82 Altered mental status, unspecified; K29.50 Unspecified chronic gastritis without bleeding; I48.2 Chronic atrial fibrillation; K25.0 Acute gastric ulcer with hemorrhage; Z88.8 Allergy status to other drugs, medicaments and biological substances; Z88.5 Allergy status to narcotic agent; Z91.013 Allergy to seafood
CPT/HCPCS: 36415; 36416; 36430; 71045; 74230; 76700; 80048; 80202; 81003; 81015; 84439; 84443; 85007; 85014; 85018; 85025; 85027; 85049; 85060; 86850; 86900; 86901; 87040; 87899; 88305; 88312; 93005; 93306; 94640; 94760; 96360; A4216; C9113; G8978-GP-CL; G8979-GP-CJ; G8979-GP-CK; G8996-GN-CJ; G8996-GN-CK; G8997-GN-CI; G8997-GN-CJ; J0360; J0692; J1650; J1940; J1956; J2001; J2270; J2704; J3010; J3370; J3490; J7050; J7620; P9016

== ENCOUNTER 2018-07-04 15:48 | Observation (INO) | payer MEDICARE ==
--- NOTE | 2018-07-04 16:34 | RAD ---
AP VIEW CHEST: 07/04/2018 HISTORY: Chest pain. COMPARISON: Previous exam from 07/04/2018. FINDINGS: AP view chest demonstrates calcification of the aorta. S-shaped thoracic and lumbar scoliosis is see n. Cardiomegaly is noted. No evidence of effusions, pneumonia, or pneumothorax is seen. IMPRESSION: 1. Cardiomegaly. 2. Calcification of the thoracic aorta. POS: [facility]
[2018-07-04 17:06] LABS: #Basophils 0.1 thou/uL (0.0-0.2); #Lymphocytes 1.6 thou/uL (1.20-3.40); #Monocytes 0.7 thou/uL (0.11-0.59); #Neutrophils 8.2 thou/uL (1.40-6.50); %Basophils 0.6 % (0.0-1.0); %Eosinophils 0.3 % (0.0-10.0); %Lymphocytes 15.6 % (21.0-51.0); %Monocytes 6.3 % (0.0-10.0); %Neutrophils 77.3 % (42.0-75.0); Hemoglobin 14.6 g/dL (12.0-16.0); Mean Corpuscular HGB CONC 31.9 g/dL (32.0-36.0); Mean Platelet Volume 8.3 fL (7.4-10.4); Platelet Count 264 thou/uL (130-400); RBC Distribution Width 15.7 % (11.5-14.5); Red Blood Cell (RBC) Count 5.03 mill/uL (4.20-5.40); White Blood Cell (WBC) Count 10.6 thou/uL (4.8-10.8)
[2018-07-04 17:34] LABS: ALT (SGPT) 17 U/L (8-55); AST (SGOT) 29 U/L (5-34); Albumin 4.4 g/dL (3.4-4.8); Alkaline Phosphatase 75 U/L (40-150); Anion Gap 17 mmol/L (10-20); BUN (Urea Nitrogen) 34 mg/dL (9.8-20.1); Bilirubin, Total 0.6 mg/dL (0.2-1.2); CK (CPK) 27 U/L (29-168); Calc. Creatinine Clearance 0 mL/min (70-130); Calcium 9.9 mg/dL (7.8-10.44); Carbon Dioxide 25 mmol/L (23-31); Chloride 108 mmol/L (98-107); Estimated GFR-MDRD 46; Globulin 3.4 g/dL (2.4-3.5); Glucose 91 mg/dL (83-110); Potassium 3.6 mmol/L (3.5-5.1); Protein, Total 7.8 g/dL (6.0-8.3); Sodium 146 mmol/L (136-145)
[2018-07-04 17:38] LABS: CKMB 1.7 ng/mL (0-6.6); Troponin I 0.049 ng/mL (< 0.028)
[2018-07-04 18:33] LABS: Troponin I 0.055 ng/mL (< 0.028)
[2018-07-04] MEDS ORDERED: Aspirin 325 MG TAB ONE (18:35)
[2018-07-04] MEDS ORDERED: hydrALAZINE 20 MG/ML VIAL ONE (20:19)
[2018-07-04 21:23] LABS: Troponin I 0.041 ng/mL (< 0.028)
[2018-07-04] MEDS ORDERED: Ondansetron PF 4 MG/2 ML Vial IVP PRN (23:52)
[2018-07-04] MEDS ORDERED: Ondansetron ODT 4 MG TAB PO PRN (23:52)
[2018-07-04] MEDS ORDERED: Acetaminophen 325 MG TAB PO PRN (23:52)
[2018-07-05 04:43] LABS: #Lymphocytes 1.6 thou/uL (1.20-3.40); #Monocytes 0.8 thou/uL (0.11-0.59); #Neutrophils 9.3 thou/uL (1.40-6.50); %Basophils 0.3 % (0.0-1.0); %Eosinophils 0.2 % (0.0-10.0); %Lymphocytes 13.9 % (21.0-51.0); %Monocytes 6.5 % (0.0-10.0); %Neutrophils 79.1 % (42.0-75.0); Hemoglobin 11.8 g/dL (12.0-16.0); Mean Corpuscular Hemoglobin 28.3 pg (27.0-31.0); Mean Corpuscular Volume 91.3 fL (78.0-98.0); Mean Platelet Volume 8.5 fL (7.4-10.4); Platelet Count 222 thou/uL (130-400); RBC Distribution Width 15.3 % (11.5-14.5); Red Blood Cell (RBC) Count 4.15 mill/uL (4.20-5.40); White Blood Cell (WBC) Count 11.7 thou/uL (4.8-10.8)
[2018-07-05 05:06] LABS: Anion Gap 18 mmol/L (10-20); BUN (Urea Nitrogen) 42 mg/dL (9.8-20.1); Calc. Creatinine Clearance 19 mL/min (70-130); Calcium 9.1 mg/dL (7.8-10.44); Carbon Dioxide 23 mmol/L (23-31); Chloride 111 mmol/L (98-107); Estimated GFR-MDRD 42; Glucose 85 mg/dL (83-110); Potassium 3.5 mmol/L (3.5-5.1); Sodium 148 mmol/L (136-145)
[2018-07-05] MEDS ORDERED: Levothyroxine Sodium 50 MCG TAB ONE (06:36)
[2018-07-05] MEDS: Levothyroxine Sodium 50 MCG TAB PO SCH (06:50)
[2018-07-05] MEDS: Amiodarone 200 MG TAB PO SCH (08:45)
[2018-07-05] MEDS: hydrALAZINE 25 MG TAB PO SCH ×3 (08:49→22:19)
[2018-07-05] MEDS: Oxybutynin 5 MG TAB PO SCH (08:50)
[2018-07-05] MEDS: Famotidine/PF 20 mg/2ml Vial SLOW IVP SCH (08:50)
[2018-07-05] MEDS: Docusate Sodium 100 MG/10 ML UDCUP PO SCH (10:44)
--- NOTE | 2018-07-05 10:50 | HP ---
CHIEF COMPLAINT: Transferred for elevated troponins. HISTORY OF PRESENT ILLNESS: This is an 88-year-old female with past medical history of GERD, decondi tioning, hypertension, hyperlipidemia, hypothyroidism, insomnia, peripheral insufficiency, constipati on, generalized weakness and diverticulitis presented with chest discomfort and patient was transferr ed from [place] due to elevated troponins. The patient's troponin was found to be 0.045 at [facility] and patient's BNP was 188. Due to elevated troponins and chief complaint of chest discomfor t at [facility], patient is brought here to be evaluated for chest pain, rule out acute coronary sy ndrome. At this point, patient is lying in bed, does not appear to be in any distress. REVIEW OF SYSTEMS: Unable to be obtained since the patient is confused. PAST MEDICAL HISTORY: Hypertension, gastroesophageal reflux disease, deconditioning, hyperlipidemia, hypothyroidism, insomnia, peripheral insufficiency, constipation, generalized weakness and diverticu litis in the past. FAMILY HISTORY: Reviewed and noncontributory. PAST SURGICAL HISTORY: The patient had a heel spur removed, suprapubic urethropexy, upper GI with es ophageal dilatation. SOCIAL HISTORY: Patient lives at home with family. Denies any alcohol use, denies any drug use and denies any smoking history. ALLERGIES: Patient is allergic to ACETAMINOPHEN, AMLODIPINE, BENAZEPRIL, CELEXA, CITALOPRAM, CODEINE , FISH, FLUOXETINE, MIRALAX, NORVASC, OMEPRAZOLE, PHENOBARBITAL, PRILOSEC, PROZAC, SHELLFISH, TYLENOL , and VENOM. CURRENT MEDICATIONS: Patient is on Colace, hydralazine 50 mg, metoprolol 25 mg, levothyroxine 50 mcg , Ditropan 5 mg. PHYSICAL EXAMINATION: VITAL SIGNS: Blood pressure is 210/75, pulse is 51, respiratory rate of 19, temperature of 98.4, O2 saturation of 98% on room air. GENERAL: Patient is lying in bed, confused, alert and oriented x1. HEENT: Normocephalic, atraumatic. Pupils are equal, round, and reactive to light. Extraocular move ments are intact. No scleral icterus. Mucous membranes are moist. NECK: Trachea is midline. No JVD. Full range of motion. RESPIRATORY: Clear to auscultation bilateral. No wheezing, no rales, no rhonchi is appreciated. CARDIOVASCULAR: Positive S1, S2, regular rate and rhythm. Patient has a 3/6 systolic murmur. ABDOMEN: Mild tenderness at the suprapubic region. No peritoneal signs. Positive bowel sounds in a ll quadrants. EXTREMITIES: Upper extremity, 5/5 upper extremity strength, 5/5 lower extremity strength. Good puls es bilaterally there at the upper and lower extremities. No edema noted. NEUROLOGIC: Cranial nerves II-XII grossly intact. Patient is alert and oriented x1. SKIN: Warm, dry, and intact. LABORATORY DATA: WBC is 10.6, hemoglobin is 14.6, hematocrit is 45.8 and platelet count is 264. Sod ium 146, potassium is 3.6, chloride 108, anion gap of 17, BUN is 34 and creatinine is 1.12. Creatini ne kinase is 27. Troponin is 0.055, second set of troponin 0.041. BNP is 575. ASSESSMENT AND PLAN: This is an 88-year-old female being admitted for: 1. Chest pain, rule out acute coronary syndrome. Patient's troponins x2 is trending down. At this point, we will continue to monitor the patient. We will start patient on her home medications. The patient is currently not in any acute distress. Does not complain of any pain. The patient is DNR/D NI per her records. We have consulted Palliative Care and we will follow up with their recommendatio ns. 2. Suprapubic tenderness most likely due to urinary retention. At this point, we have ordered for b ladder scan and we will follow up with results. 3. Hypothyroidism. We will continue the patient on her home medication. 4. Peripheral insufficiency. We will continue the patient on current management. 5. Deconditioning. We will continue patient on current medication and we will start patient on good nutrition, probably patient will benefit from dietitian consult. 6. Hypertension. We will continue the patient on her home medications. 7. Hyperlipidemia. Continue the patient on current management. 8. Deep venous thrombosis and gastrointestinal prophylaxis.
[2018-07-05] MEDS: Sodium Chloride 0.9% 1,000 ML IV SCH (16:18)
--- NOTE | 2018-07-05 17:52 | PDOC.PN ---
- Subjective Encounter Start Date: 07/05/18 Encounter Start Time: 10:30 Ms. Johnson was seen today in follow-up of chest pain. She is laying in bed eating breakfast when I came to evaluate the patient. She appears comfortable. However, when asked how she feels, she says terrible, and has a positive review of systems to almost every question asked. She admits to chest pain currently ( but pain all over) - Objective Resuscitation Status: Resuscitation Status DNR:Do Not Resuscitate MAR Reviewed: Yes Vital Signs & Weight: Vital Signs (12 hours) Temp Pulse Pulse Pulse Resp BP BP 07/05/18 15:49 97.9 F 50 L 18 07/05/18 14:49 53 L 157/62 H 07/05/18 14:33 49 L 51 L 186/67 H 07/05/18 13:37 51 L 50 L 165/66 H 07/05/18 12:00 99.3 F 53 L 16 07/05/18 08:49 50 L 199/78 H 07/05/18 08:15 98.6 F 50 L 16 BP BP Pulse Ox 07/05/18 15:49 177/68 H 96 07/05/18 14:49 07/05/18 14:33 186/67 H 07/05/18 13:37 185/80 H 07/05/18 12:00 157/62 H 97 07/05/18 08:49 07/05/18 08:15 199/78 H 94 L Weight Admit Weight 82 lb 4.8 oz Weight 82 lb 4.8 oz I&O: 07/04/18 07/05/18 07/06/18 06:59 06:59 06:59 Intake Total 50 Output Total 625 50 Balance -575 -50 Result Diagrams: 07/05/18 04:25 07/05/18 04:25 Phys Exam - Physical Examination HEENT: PERRLA Respiratory: no wheezing, no rales, no rhonchi, clear to auscultation bilateral Cardiovascular: RRR, no significant murmur, no rub Gastrointestinal: soft, non-tender, no distention, positive bowel sounds Musculoskeletal: no edema Dx/Plan (1) Chest pain Code(s): R07.9 - CHEST PAIN, UNSPECIFIED Status: Acute (2) Hypertensive urgency Code(s): I16.0 - HYPERTENSIVE URGENCY Status: Acute (3) Physical deconditioning Code(s): R53.81 - OTHER MALAISE Status: Chronic (4) Hypothyroidism Code(s): E03.9 - HYPOTHYROIDISM, UNSPECIFIED Status: Chronic Qualifiers: Hypothyroidism type: unspecified Qualified Code(s): E03.9 - Hypothyroidism , unspecified Comment: Continue Levothyroxine - Plan * Chest pain- I suspect due to hypertensive urgency. Will address blood pressure and re-assess * HTN - uncontrolled- she is also bradycardic- will discontinue Metoprolol, continue Hydralazine and consider Aldomet, if her blood pressure continues to be elevated- given her allergy profile. * Elevated troponins are likely due to hypertensive urgency as well * Hypothyroidism- thyroid functions have been check recently, and were normal * Physical deconditioning- will consult PT/OT
[2018-07-06] MEDS: hydrALAZINE 20 MG/ML VIAL SLOW IVP PRN ×2 (00:13→03:47)
[2018-07-06] MEDS ORDERED: cloNIDine 0.1 MG TAB PO SCH (05:45)
[2018-07-06] MEDS: Levothyroxine Sodium 50 MCG TAB PO SCH (05:50)
[2018-07-06] MEDS: Sodium Chloride 0.9% 1,000 ML IV SCH ×3 (06:01→21:33)
[2018-07-06] MEDS: Famotidine 20 MG TAB PO SCH (09:15)
[2018-07-06] MEDS: hydrALAZINE 25 MG TAB PO SCH ×3 (09:15→21:34)
[2018-07-06] MEDS: Oxybutynin 5 MG TAB PO SCH (09:16)
[2018-07-06] MEDS: Amiodarone 200 MG TAB PO SCH (09:16)
[2018-07-06] MEDS: Famotidine/PF 20 mg/2ml Vial SLOW IVP SCH (09:16)
[2018-07-06] MEDS: Docusate Sodium 100 MG/10 ML UDCUP PO SCH (09:16)
[2018-07-06] MEDS ORDERED: Sodium Chloride 0.9% 500 ML IV SCH (12:00)
--- NOTE | 2018-07-06 12:15 | PDOC.PN ---
- Subjective Encounter Start Date: 07/06/18 Encounter Start Time: 12:13 Ms. Johnson was seen today in follow-up of chest pain. She says the pain has improved. She has not had much appetite however. - Objective Resuscitation Status: Resuscitation Status DNR:Do Not Resuscitate MAR Reviewed: Yes Vital Signs & Weight: Vital Signs (12 hours) Temp Pulse Resp BP BP BP Pulse Ox 07/06/18 12:00 97.9 F 51 L 16 173/75 H 93 L 07/06/18 09:15 52 L 07/06/18 08:00 97.6 F 52 L 16 166/62 H 92 L 07/06/18 06:40 194/73 H 07/06/18 05:49 207/100 H 07/06/18 05:26 207/100 H 07/06/18 04:00 97.6 F 52 L 18 223/69 H 95 07/06/18 03:47 50 L 223/69 H 07/06/18 01:50 135/83 Weight Admit Weight 82 lb 4.8 oz Weight 82 lb 4.8 oz I&O: 07/05/18 07/06/18 07/07/18 06:59 06:59 06:59 Intake Total 50 820 Output Total 625 160 Balance -575 660 Result Diagrams: 07/05/18 04:25 07/06/18 05:34 Phys Exam - Physical Examination HEENT: PERRLA Respiratory: no wheezing, no rales, no rhonchi, clear to auscultation bilateral Cardiovascular: RRR, no significant murmur, no rub Gastrointestinal: soft, non-tender, no distention, positive bowel sounds Musculoskeletal: no edema Dx/Plan (1) Chest pain Code(s): R07.9 - CHEST PAIN, UNSPECIFIED Status: Acute (2) Hypertensive urgency Code(s): I16.0 - HYPERTENSIVE URGENCY Status: Acute (3) Physical deconditioning Code(s): R53.81 - OTHER MALAISE Status: Chronic (4) Hypothyroidism Code(s): E03.9 - HYPOTHYROIDISM, UNSPECIFIED Status: Chronic Qualifiers: Hypothyroidism type: unspecified Qualified Code(s): E03.9 - Hypothyroidism , unspecified Comment: Continue Levothyroxine - Plan * Hypertensive Urgency- will continue Hydralazine at 100mg TID, and given her low heart rate, and multiple drug allergies, will add Hydralazine as needed for elevated blood pressure. I would avoid Clonidine given her bradycardia. I suspect her blood pressure will be very difficult to manage * Hypothyroidism- clinically stable * Low urine output- will bolus with NS 500ml, and continue IV fluids * Begin discharge planning
[2018-07-06] MEDS ORDERED: Spironolactone 25 MG TAB PO SCH (15:15)
[2018-07-06] MEDS: Spironolactone 25 MG TAB PO SCH (17:12)
[2018-07-07] MEDS: hydrALAZINE 25 MG TAB PO PRN (01:39)
[2018-07-07 04:17] LABS: Anion Gap 11 mmol/L (10-20); BUN (Urea Nitrogen) 31 mg/dL (9.8-20.1); Calc. Creatinine Clearance 28 mL/min (70-130); Calcium 8.2 mg/dL (7.8-10.44); Carbon Dioxide 19 mmol/L (23-31); Chloride 121 mmol/L (98-107); Estimated GFR-MDRD 67; Glucose 96 mg/dL (83-110); Potassium 3.2 mmol/L (3.5-5.1); Sodium 148 mmol/L (136-145)
[2018-07-07] MEDS: Levothyroxine Sodium 50 MCG TAB PO SCH (05:15)
--- NOTE | 2018-07-07 05:56 | PDOC.EVN ---
Event Note - Event Note Event Note: called for no uop ovn despite M[facility] nothing on bladder scan continue to monitor I/O - has been started on IVF also called for SBP > 200 which is not new for the pt overnight but has persisted despite escalation of antihypertensive regimen will add lasix 40mg PO x1 - pt with preserved LVEF during echo 1 mo ago but no commentary re: diastolic fxn which was unable to be det continue monitoring of SBP and bladder scanning sev mo ago during prior hospitalization, SBP range in 140s-160s
[2018-07-07 06:27] LABS: Hemoglobin 9.9 g/dL (12.0-16.0); Mean Corpuscular HGB CONC 30.1 g/dL (32.0-36.0); Mean Corpuscular Volume 93.1 fL (78.0-98.0); Mean Platelet Volume 9.2 fL (7.4-10.4); Platelet Count 191 thou/uL (130-400); RBC Distribution Width 15.6 % (11.5-14.5); Red Blood Cell (RBC) Count 3.55 mill/uL (4.20-5.40); White Blood Cell (WBC) Count 9.8 thou/uL (4.8-10.8)
[2018-07-07] MEDS ORDERED: Furosemide 40 MG TAB PO SCH (06:30)
[2018-07-07 07:19] LABS: Band 10 % (5-11); Burr Cells MARKED = >16 cells (100X) (0-1/hpf); Eosinophils 1 % (0-10); Lymphocytes 18 % (21-51); MDiff Complete? YES; Monocytes 3 % (0-10); Neutrophil 68 % (42-75); PLT Morphology Comment Appears Adequate; Polychromasia SLIGHT = 2-3 cells (100X) (0-2/hpf); Reflex for Review?? NO
[2018-07-07] MEDS: Sodium Chloride 0.9% 1,000 ML IV SCH ×2 (07:51→13:15)
[2018-07-07] MEDS: hydrALAZINE 25 MG TAB PO SCH ×3 (07:53→20:32)
[2018-07-07] MEDS: Spironolactone 25 MG TAB PO SCH ×2 (07:53→17:10)
[2018-07-07] MEDS: Famotidine/PF 20 mg/2ml Vial SLOW IVP SCH (10:09)
[2018-07-07] MEDS: Famotidine 20 MG TAB PO SCH (10:10)
[2018-07-07] MEDS: Docusate Sodium 100 MG/10 ML UDCUP PO SCH (10:10)
[2018-07-07] MEDS: Amiodarone 200 MG TAB PO SCH (10:10)
[2018-07-07] MEDS: Oxybutynin 5 MG TAB PO SCH (10:10)
--- NOTE | 2018-07-07 12:48 | PDOC.PN ---
- Subjective Encounter Start Date: 07/07/18 Encounter Start Time: 12:47 Ms. Johnson was seen today in follow-up of Hypertensive Urgency. She denies chest pain but states she feels short of breath. She has a flat affect, and says she doesn't want to try eating anything. - Objective Resuscitation Status: Resuscitation Status DNR:Do Not Resuscitate MAR Reviewed: Yes Vital Signs & Weight: Vital Signs (12 hours) Temp Pulse Resp BP BP BP Pulse Ox 07/07/18 12:00 99.2 F 54 L 16 166/79 H 95 07/07/18 07:59 98.9 F 57 L 16 231/92 H 96 07/07/18 07:53 52 L 231/92 H 07/07/18 04:00 98.1 F 52 L 16 201/67 H 96 07/07/18 01:39 57 L 178/72 H Weight Admit Weight 82 lb 4.8 oz Weight 82 lb 4.8 oz I&O: 07/06/18 07/07/18 07/08/18 06:59 06:59 06:59 Intake Total 820 2709 120 Output Total 843 993 7438 Balance 660 2334 -1480 Result Diagrams: 07/07/18 03:38 07/07/18 03:38 Phys Exam - Physical Examination HEENT: PERRLA Respiratory: no wheezing, no rales, no rhonchi, clear to auscultation bilateral Cardiovascular: RRR, no significant murmur, no rub Gastrointestinal: soft, non-tender, no distention, positive bowel sounds Musculoskeletal: no edema, pulses present Psychiatric: A&O x 3 Deviation from normal: flat affect Skin: normal turgor, cap refill <2 seconds Dx/Plan (1) Hypertensive urgency Code(s): I16.0 - HYPERTENSIVE URGENCY Status: Acute (2) Chest pain Code(s): R07.9 - CHEST PAIN, UNSPECIFIED Status: Acute (3) Physical deconditioning Code(s): R53.81 - OTHER MALAISE Status: Chronic (4) Hypothyroidism Code(s): E03.9 - HYPOTHYROIDISM, UNSPECIFIED Status: Chronic Qualifiers: Hypothyroidism type: unspecified Qualified Code(s): E03.9 - Hypothyroidism , unspecified Comment: Continue Levothyroxine - Plan * Hypertensive Urgency- blood pressure is still uncontrolled- I spoke with Dr. Canales regarding her case. Will consult Cardiology for recommendations. * Hypokalemia- replace * Hypothyroidism- clinically stable * Severe Deconditioning- continue PT/OT and plan is for transfer to [facility] prior to going home.
[2018-07-07] MEDS ORDERED: Potassium Chloride 20 MEQ TAB PO SCH (13:00)
[2018-07-07] MEDS: hydrALAZINE 20 MG/ML VIAL SLOW IVP PRN (15:47)
[2018-07-07] MEDS: cloNIDine 0.1 MG TAB PO SCH (20:33)
--- NOTE | 2018-07-07 22:04 | CON ---
DATE OF CONSULTATION: 07/07/2018 REASON FOR CONSULTATION: Hypertension. HISTORY OF PRESENT ILLNESS: Ms. Johnson is a very pleasant 88-year-old white female who comes to the hospital for chest pain. She was admitted and found to have hypertensive emergency and Cardiology is being consulted for help with her blood pressure control. Currently, she is chest pain free. Her t roponins were in the indeterminate range. Blood pressures ranging from 160s to 200. PAST MEDICAL HISTORY: 1. Hypertension. 2. GERD. 3. Deconditioning. 4. Hyperlipidemia. 5. Hypothyroidism. 6. Insomnia. 7. Constipation. 8. Diverticulitis in the past. 9. Recent GI bleeding. PAST SURGICAL HISTORY: 1. Heel spur removal. 2. Catheter. 3. Upper GI with esophageal dilatation. SOCIAL HISTORY: No alcohol, tobacco or drugs. OUTPATIENT MEDICATIONS: 1. Hydralazine 100 mg p.o. t.i.d. 2. Oxybutynin. 3. Metoprolol succinate 50 mg a day. 4. Levothyroxine 50 mcg a day. 5. Docusate. 6. Aspirin 81 a day. ALLERGIES: 1. CONTRAST DYE, anaphylaxis. 2. AMLODIPINE. 3. ASMANEX. 4. BENAZEPRIL. 5. CITALOPRAM. 6. CODEINE. 7. FISH PRODUCTS. 8. PROZAC. 9. OMEPRAZOLE. 10. PHENOBARBITAL. 11. SHELLFISH. 12. VENOM WASP gives her anaphylaxis. REVIEW OF SYSTEMS: Twelve point review of system was done, it is all negative unless stated in the h istory of present illness. PHYSICAL EXAMINATION: VITAL SIGNS: Temperature 98.5, pulse , respiration rate 18, satting 94% on room air, blood pres sure 216/92. GENERAL: Awake, alert, and oriented x3, in no distress. HEENT: Normocephalic, atraumatic. NECK: Supple. LUNGS: Lungs are clear. CARDIOVASCULAR: S1, S2, no S3, S4, no murmurs. ABDOMEN: Soft, positive bowel sounds. EXTREMITIES: No edema. SKIN: Warm and dry. LABORATORY WORK: Reviewed. Sodium 148, potassium 3.2, chloride of 121, carbon dioxide of 19, anion gap of 11, BUN of 31, creatinine 0.81, GFR of 67. Troponin was in the indeterminate range at 0.04, 0 .05 and 0.04. BNP was 468. ASSESSMENT AND PLAN: 1. Malignant hypertension. 2. Chest pain: Likely related to hypertension. 3. Mildly elevated troponin, likely demand ischemia, patient is not a good candidate for any invasiv e interventions given advanced age and recent GI bleeding. PLAN: 1. We will add clonidine 0.1 mg twice a day scheduled to see if this helps, his hydralazine is alrea dy maxed out and would not restart her Coreg given her baseline bradycardia. 2. We would also want her blood pressure to be checked standing up see if this makes any difference. If it does, if she is orthostatic, I would recommend backing off on some of her blood pressure medi cine just check standing up and see and treat depending on the standing blood pressure. 3. No further intervention is planned for her chest pain. She is pain free and likely was related t o hypertension. Thank you for letting us participate in the care of your patient. We will follow.
[2018-07-08] MEDS: hydrALAZINE 20 MG/ML VIAL SLOW IVP PRN (01:33)
[2018-07-08 05:27] LABS: Anion Gap 13 mmol/L (10-20); BUN (Urea Nitrogen) 19 mg/dL (9.8-20.1); Calc. Creatinine Clearance 31 mL/min (70-130); Calcium 8.2 mg/dL (7.8-10.44); Carbon Dioxide 20 mmol/L (23-31); Chloride 119 mmol/L (98-107); Estimated GFR-MDRD 73; Glucose 82 mg/dL (83-110); Potassium 3.7 mmol/L (3.5-5.1); Sodium 148 mmol/L (136-145)
[2018-07-08] MEDS: hydrALAZINE 25 MG TAB PO PRN (05:50)
[2018-07-08] MEDS: Levothyroxine Sodium 50 MCG TAB PO SCH (05:50)
[2018-07-08] MEDS: Oxybutynin 5 MG TAB PO SCH (08:40)
[2018-07-08] MEDS: Famotidine 20 MG TAB PO SCH (08:40)
[2018-07-08] MEDS: cloNIDine 0.1 MG TAB PO SCH (08:41)
[2018-07-08] MEDS: Spironolactone 25 MG TAB PO SCH (08:41)
[2018-07-08] MEDS: hydrALAZINE 25 MG TAB PO SCH (08:41)
[2018-07-08] MEDS: Docusate Sodium 100 MG/10 ML UDCUP PO SCH (08:42)
[2018-07-08] MEDS: Amiodarone 200 MG TAB PO SCH (08:42)
[2018-07-08] MEDS: Sodium Chloride 0.9% 1,000 ML IV SCH (09:46)
[2018-07-08] MEDS: Famotidine/PF 20 mg/2ml Vial SLOW IVP SCH (09:47)
[2018-07-08 11:07] VITALS: BMI 15.4
[2018-07-08 12:03] VITALS: TEMP 97.5
--- NOTE | 2018-07-08 13:06 | PDOC.PN ---
- Subjective Encounter Start Date: 07/08/18 Encounter Start Time: 13:04 Ms. Johnson does not have any new complaints. - Objective Resuscitation Status: Resuscitation Status DNR:Do Not Resuscitate MAR Reviewed: Yes Vital Signs & Weight: Vital Signs (12 hours) Temp Pulse Pulse Pulse Resp BP BP 07/08/18 12:00 97.5 F L 48 L 16 07/08/18 10:37 52 L 57 L 195/78 H 07/08/18 08:41 56 L 212/91 H 07/08/18 07:57 97.8 F 56 L 16 07/08/18 05:50 51 L 225/92 H 07/08/18 04:00 97.4 F L 51 L 14 07/08/18 01:33 56 L 187/75 H BP BP BP BP Pulse Ox 07/08/18 12:00 192/65 H 97 07/08/18 10:37 161/80 H 07/08/18 08:41 07/08/18 07:57 212/91 H 95 07/08/18 05:50 07/08/18 04:00 234/77 H 215/84 H 225/92 H 93 L 07/08/18 01:33 Weight Admit Weight 82 lb 4.8 oz Weight 84 lb 7 oz I&O: 07/07/18 07/08/18 07/09/18 06:59 06:59 06:59 Intake Total 2709 1225 Output Total 375 2400 Balance 2334 -1175 Result Diagrams: 07/07/18 03:38 07/08/18 03:45 Phys Exam - Physical Examination HEENT: PERRLA Respiratory: no wheezing, no rales, no rhonchi, clear to auscultation bilateral Cardiovascular: RRR, no significant murmur, no rub Gastrointestinal: soft, non-tender, no distention, positive bowel sounds Musculoskeletal: no edema Dx/Plan (1) Hypertensive urgency Code(s): I16.0 - HYPERTENSIVE URGENCY Status: Acute (2) Chest pain Code(s): R07.9 - CHEST PAIN, UNSPECIFIED Status: Acute (3) Physical deconditioning Code(s): R53.81 - OTHER MALAISE Status: Chronic (4) Hypothyroidism Code(s): E03.9 - HYPOTHYROIDISM, UNSPECIFIED Status: Chronic Qualifiers: Hypothyroidism type: unspecified Qualified Code(s): E03.9 - Hypothyroidism , unspecified Comment: Continue Levothyroxine - Plan * HTN- blood pressure continues to be elevated, however with her heart rate, and multiple drug allergies, not much can be done for better control. She is at least not symptomatic from it now. Cardiology input appreciated * Stable for discharge to the swing bed.
[2018-07-08] MEDS ORDERED: cloNIDine 0.1 MG TAB PO SCH (13:19)
--- NOTE | 2018-07-08 13:22 | PDOC.CTH ---
Cardiology Progress Note - Subjective No new issues or concerns. She states she had chest pain earlier today when her BP was in the 200's. - Objective Vital Signs Temp Pulse Pulse Pulse Resp BP BP 07/08/18 12:00 97.5 F L 48 L 16 07/08/18 10:37 52 L 57 L 195/78 H 07/08/18 08:41 56 L 212/91 H 07/08/18 07:57 97.8 F 56 L 16 07/08/18 05:50 51 L 225/92 H 07/08/18 04:00 97.4 F L 51 L 14 07/08/18 01:33 56 L 187/75 H BP BP BP BP Pulse Ox 07/08/18 12:00 192/65 H 97 07/08/18 10:37 161/80 H 07/08/18 08:41 07/08/18 07:57 212/91 H 95 07/08/18 05:50 07/08/18 04:00 234/77 H 215/84 H 225/92 H 93 L 07/08/18 01:33 Admit Weight 82 lb 4.8 oz Weight 84 lb 7 oz 07/07/18 07/08/18 07/09/18 06:59 06:59 06:59 Intake Total 2709 1225 Output Total 375 2400 Balance 2334 -1175 - Physical Examination General/Neuro: NAD, other: (AA O x 2) Neck: no JVD present Lungs: unlabored respirations Heart: RRR Abdomen: NT/ND Extremities: + edema B (no edema.) - Telemetry Telemetry Rhythm: NSR - Labs Result Diagrams: 07/07/18 03:38 07/08/18 03:45 Troponin/CKMB CK-MB (CK-2) 1.7 ng/mL (0-6.6) 07/04/18 16:58 Troponin I 0.041 ng/mL (< 0.028) H 07/04/18 20:28 - Assessment/Plan 1. HTN, malignant PLAN: - Not a candidate for invasive interventions, she is not interested either. - Will increase clonidine and will add nitrates.
[2018-07-08] MEDS ORDERED: cloNIDine 0.2 MG TAB PO SCH ×2 (13:30→21:00)
--- NOTE | 2018-07-08 13:34 | DIS ---
DATE OF ADMISSION: 07/04/2018 DATE OF DISCHARGE: 07/08/2018 PRIMARY CARE PHYSICIAN: Shun Lamas M.D. DISCHARGE DISPOSITION: To the swing bed in [place]. DISCHARGE DIAGNOSES: 1. Hypertensive urgency. 2. Chest pain secondary to #1. 3. Hypothyroidism. 4. Physical deconditioning. 5. Hyperlipidemia. 6. Gastroesophageal reflux disease. DISCHARGE MEDICATIONS: Include clonidine 0.2 mg twice a day, amiodarone 200 mg daily, aspirin 81 mg daily, hydralazine 100 mg t.i.d., levothyroxine 50 mcg daily, oxybutynin 5 mg daily, Aldactone 25 mg twice a day, hydralazine 25 mg p.o. t.i.d. as needed for blood pressure greater than 180. Imdur ER30 mg a day CODE STATUS: DNR. ALLERGIES: IODINATED CONTRAST, FISH PRODUCTS, PHENOBARBITAL, CODEINE, OMEPRAZOLE, BENAZEPRIL, AMLODIPINE, FLUOXETINE, CITALOPRAM, VENOM WASP, AND SHELLFISH DERIVATIVES. HOSPITAL COURSE: Ms. Johnson is a pleasant 88-year-old female who was brought from home after she was complaining of generalized weakness and essentially pain all over. All tests were essentially negative except for an elevation in her blood pressure. It is thought that least the chest pain was related to hypertensive urgency. She also had a bit of dehydration as well. Unfortunately , due to her multiple allergies and her heart rate being significantly bradycardic was going down into the 40s. Her blood pressure was very difficult to manage. She was taken off the beta rj due to the bradycardia. Hydralazine dose was increased as well as adding Aldactone. Cardiology was also consulted to help with the management and it was recommended that we start clonidine twice a day as needed. However, the patient's blood pressure will likely never be at the standard goal. At the time of discharge, she seemed at least asymptomatic with regards to the elevated blood pressure and she will be discharged back to the nursing home facility. Due to the difficulty with her blood pressure and her advanced age, I suspect that her prognosis is guarded. OLEG
[2018-07-08 13:39] VITALS: BP 205/69
--- NOTE | 2018-07-09 11:22 | EKG ---
Test Reason : Blood Pressure : / mmHG Vent. Rate : 050 BPM Atrial Rate : 050 BPM P-R Int : 150 ms QRS Dur : 084 ms QT Int : 478 ms P-R-T Axes : 058 -13 082 degrees QTc Int : 435 ms Sinus bradycardia Left ventricular hypertrophy with repolarization abnormality Cannot rule out Septal infarct , age undetermined Abnormal ECG Confirmed by EDILMA ARIZMENDI, FROYLAN ([id number]), brands editor FRANCHESKA BOWMAN ([id number]) on 07/09/2018 11:21:53 AM Referred By: Confirmed By:FROYLAN FRANCE MD
== END 2018-07-08 14:46 ==
LOC: ERS 15:48 → INTOOBSV 21:30 → 2SE 21:30
PROVIDERS: ADMIT Internal Medicine; ATTEND Internal Medicine
DX: I16.0 Hypertensive urgency (principal); E03.9 Hypothyroidism, unspecified; E78.5 Hyperlipidemia, unspecified; K21.9 Gastro-esophageal reflux disease without esophagitis; R53.81 Other malaise; Z79.899 Other long term (current) drug therapy; Z79.82 Long term (current) use of aspirin; Z91.041 Radiographic dye allergy status; Z88.5 Allergy status to narcotic agent; Z88.8 Allergy status to other drugs, medicaments and biological substances
CPT/HCPCS: 71045; 80048 ×4; 80053; 82550; 82553; 82565; 83880 ×2; 84484; 84520; 85007; 85025 ×2; 85027; 93005; 94760; 96361 ×3; 96374; 96375; 96376 ×3; 97110 ×3; 97139 ×5; 97530 ×5; 99285; G0378 ×3; G8978; G8979; G8987; G8988; 36415; G8996-GN-CK; G8996-GN-CL; G8997-GN-CI; G8997-GN-CK; J0360; Q0162; S0028